=== PATIENT | male | born 1965 | race American Indian/Alaskan Native ===

== ENCOUNTER 2019-01-24 20:10 | Emergency (ER) | payer OTHER ==
[~2019-01-24] VITALS: Ht 180.3 cm; Wt 97.0 kg
[2019-01-24 20:15] VITALS: BP 147/81
[2019-01-24] MEDS ORDERED: morphine 4 MG/ML inj SYRINge IM ONE (20:30)
[2019-01-24] MEDS ORDERED: HYDR-3965 PO (20:31)
== END 2019-01-24 20:59 | disposition home or self-care (01) ==
LOC: ER 20:14
DX: G89.18 Other acute postprocedural pain (principal); I10 Essential (primary) hypertension; F12.90 Cannabis use, unspecified, uncomplicated; Z79.899 Other long term (current) drug therapy; Z87.891 Personal history of nicotine dependence
CPT/HCPCS: 96372; 99284; J2270

== ENCOUNTER 2019-01-31 10:04 | Emergency (ER) | payer OTHER ==
[~2019-01-31] VITALS: Ht 180.3 cm; Wt 104.0 kg
[~2019-01-31 10:04] MED LIST: HYDR-3965 PO
--- NOTE | 2019-01-31 12:16 | NUR ---
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 REQUESTED THAT SHE BE CALLED AND NOTIFIED SHOULD PT BE ADMITTED AT AND IF/ WHEN PT IS DC'd TO FAX THE PTS DC INSTRUSTIONS TO
[2019-01-31] MEDS ORDERED: HYDR-4353 PO (12:29)
[2019-01-31] MEDS ORDERED: HYDROcodone/acetaminophen 10/325mg tab PO ONE (12:30)
[2019-01-31 12:41] VITALS: BP 141/82
== END 2019-01-31 12:44 | disposition home or self-care (01) ==
LOC: ER 10:05
DX: S81.802D Unspecified open wound, left lower leg, subsequent encounter (principal); I10 Essential (primary) hypertension; F10.99 Alcohol use, unspecified with unspecified alcohol-induced disorder; F12.90 Cannabis use, unspecified, uncomplicated; Z98.890 Other specified postprocedural states; Z79.899 Other long term (current) drug therapy; X58.XXXD Exposure to other specified factors, subsequent encounter; Y90.9 Presence of alcohol in blood, level not specified
CPT/HCPCS: 99284

== ENCOUNTER 2019-02-07 08:58 | Day surgery (SDC) | payer OTHER ==
[~2019-02-07 08:58] MED LIST changes: +HYDR-4353 PO
[2019-02-07] MEDS ORDERED: LIDOcaine 2% 5ml jelly ONE (09:40)
== END 2019-02-07 11:31 | disposition home or self-care (01) ==
LOC: WOUND CARE 08:58 → EDSTATUS 09:30 → WOUND CARE 11:31
PROVIDERS: ATTEND Surgery
DX: T87.81 Dehiscence of amputation stump (principal); L97.223 Non-pressure chronic ulcer of left calf with necrosis of muscle; I10 Essential (primary) hypertension; F12.90 Cannabis use, unspecified, uncomplicated; Z87.891 Personal history of nicotine dependence; Z79.899 Other long term (current) drug therapy; Z98.890 Other specified postprocedural states; Y83.5 Amputation of limb(s) as the cause of abnormal reaction of the patient, or of later complication, without mention of misadventure at the time of the procedure
CPT/HCPCS: 11043; 11046; 97605; A6223; A4663; A6446

== ENCOUNTER 2019-02-09 09:29 | Day surgery (SDC) | payer OTHER | END 2019-02-09 11:30 | disposition home or self-care (01) | LOC: WOUND CARE 09:29 | PROVIDERS: ATTEND Surgery | DX: T87.81 Dehiscence of amputation stump (principal); L97.223 Non-pressure chronic ulcer of left calf with necrosis of muscle; I10 Essential (primary) hypertension; F12.90 Cannabis use, unspecified, uncomplicated; Z87.891 Personal history of nicotine dependence; Z79.899 Other long term (current) drug therapy; Z98.890 Other specified postprocedural states; Y83.5 Amputation of limb(s) as the cause of abnormal reaction of the patient, or of later complication, without mention of misadventure at the time of the procedure | CPT/HCPCS: 11043; 11046; A6222; A4663; A6446 ==

== ENCOUNTER 2019-02-13 09:08 | Day surgery (SDC) | payer OTHER ==
[2019-02-13] MEDS ORDERED: LIDOcaine 2% 5ml jelly ONE (09:47)
== END 2019-02-13 12:05 | disposition home or self-care (01) ==
LOC: WOUND CARE 09:08
PROVIDERS: ATTEND Surgery
DX: T87.81 Dehiscence of amputation stump (principal); L97.223 Non-pressure chronic ulcer of left calf with necrosis of muscle; I10 Essential (primary) hypertension; F12.90 Cannabis use, unspecified, uncomplicated; Z87.891 Personal history of nicotine dependence; Z79.899 Other long term (current) drug therapy; Z98.890 Other specified postprocedural states; Y83.5 Amputation of limb(s) as the cause of abnormal reaction of the patient, or of later complication, without mention of misadventure at the time of the procedure
CPT/HCPCS: 11042; 11045; 97605; A6222; A4456; A4663

== ENCOUNTER 2019-02-16 08:45 | Day surgery (SDC) | payer OTHER ==
[2019-02-16] MEDS ORDERED: LIDOcaine 2% 5ml jelly ONE (09:28)
== END 2019-02-16 11:43 | disposition home or self-care (01) ==
LOC: WOUND CARE 08:45
PROVIDERS: ATTEND Surgery
DX: T87.81 Dehiscence of amputation stump (principal); L97.223 Non-pressure chronic ulcer of left calf with necrosis of muscle; I10 Essential (primary) hypertension; F12.90 Cannabis use, unspecified, uncomplicated; Z87.891 Personal history of nicotine dependence; Z79.899 Other long term (current) drug therapy; Z98.890 Other specified postprocedural states; Y83.5 Amputation of limb(s) as the cause of abnormal reaction of the patient, or of later complication, without mention of misadventure at the time of the procedure
CPT/HCPCS: 11045; 97606; A4663

== ENCOUNTER 2019-02-20 09:25 | Day surgery (SDC) | payer OTHER ==
[2019-02-20] MEDS ORDERED: LIDOcaine 2% 5ml jelly ONE (09:41)
== END 2019-02-20 10:45 | disposition home or self-care (01) ==
LOC: WOUND CARE 09:25
PROVIDERS: ATTEND Surgery
DX: T87.81 Dehiscence of amputation stump (principal); L97.223 Non-pressure chronic ulcer of left calf with necrosis of muscle; I10 Essential (primary) hypertension; F12.90 Cannabis use, unspecified, uncomplicated; Z87.891 Personal history of nicotine dependence; Z79.899 Other long term (current) drug therapy; Z98.890 Other specified postprocedural states; Y83.5 Amputation of limb(s) as the cause of abnormal reaction of the patient, or of later complication, without mention of misadventure at the time of the procedure
CPT/HCPCS: 11042; 11045; 97605; A6222; A4456; A4663

== ENCOUNTER 2019-02-27 09:15 | Day surgery (SDC) | payer OTHER ==
[~2019-02-27 09:15] MED LIST changes: -HYDR-3965 PO
[2019-02-27] MEDS ORDERED: LIDOcaine 2% 5ml jelly ONE (10:13)
== END 2019-02-27 11:16 | disposition home or self-care (01) ==
LOC: WOUND CARE 09:15
PROVIDERS: ATTEND Surgery
DX: T87.81 Dehiscence of amputation stump (principal); L97.223 Non-pressure chronic ulcer of left calf with necrosis of muscle; I10 Essential (primary) hypertension; F12.90 Cannabis use, unspecified, uncomplicated; Z87.891 Personal history of nicotine dependence; Z79.899 Other long term (current) drug therapy; Z98.890 Other specified postprocedural states; Y83.5 Amputation of limb(s) as the cause of abnormal reaction of the patient, or of later complication, without mention of misadventure at the time of the procedure
CPT/HCPCS: 11042; 11043; 11045; 97605; A6222; A4663; A6021; A6446

== ENCOUNTER 2019-03-06 09:30 | Day surgery (SDC) | payer OTHER ==
[2019-03-06] MEDS ORDERED: LIDOcaine 2% 5ml jelly ONE (09:54)
== END 2019-03-06 12:15 | disposition home or self-care (01) ==
LOC: WOUND CARE 09:30
PROVIDERS: ATTEND Surgery
DX: T87.81 Dehiscence of amputation stump (principal); L97.223 Non-pressure chronic ulcer of left calf with necrosis of muscle; I10 Essential (primary) hypertension; F12.90 Cannabis use, unspecified, uncomplicated; Z87.891 Personal history of nicotine dependence; Z79.899 Other long term (current) drug therapy; Z98.890 Other specified postprocedural states; Y83.5 Amputation of limb(s) as the cause of abnormal reaction of the patient, or of later complication, without mention of misadventure at the time of the procedure
CPT/HCPCS: 11042; 11045; 97605; A6223; A4456; A4663; A6021; A6212

== ENCOUNTER 2019-03-07 21:50 | Emergency (ER) | payer OTHER ==
[~2019-03-07] VITALS: Ht 208.3 cm; Wt 104.0 kg
[2019-03-07 23:05] LABS: BASOPHILS # (AUTO) 0.1 X10'3 (0-0.2); BASOPHILS % (AUTO) 0.8 % (0-1); EOSINOPHILS # (AUTO) 0.4 X10'3 (0-0.9); EOSINOPHILS % (AUTO) 4.2 % (0-6); HEMATOCRIT 33.7 % (42.0-52.0); HEMOGLOBIN 10.8 g/dl (14.0-17.9); LYMPHOCYTES # (AUTO) 2.5 X10'3 (1.1-4.8); LYMPHOCYTES % (AUTO) 26.4 % (21-51); MEAN CORPUSCULAR HEMOGLOBIN 25.3 PG (27.0-31.0); MEAN CORPUSCULAR HGB CONC 32.2 g/dL (33.0-36.5); MEAN CORPUSCULAR VOLUME 78.5 FL (78-98); MEAN PLATELET VOLUME 7.6 FL (7.4-10.4); MONOCYTES # (AUTO) 1.2 X10'3 (0-0.9); MONOCYTES % (AUTO) 12.6 % (2-12); NEUTROPHILS # (AUTO) 5.3 X10'3 (1.8-7.7); PLATELET COUNT 393 X10'3 (140-440); RED BLOOD COUNT 4.29 X10'6 (4.70-6.10); RED CELL DISTRIBUTION WIDTH 15.9 % (11.5-14.5); WHITE BLOOD COUNT 9.5 X10'3 (4.5-11.0)
[2019-03-07 23:17] LABS: ALANINE AMINOTRANSFERASE 29 U/L (12-78); ALBUMIN 3.4 G/DL (3.4-5.0); ALBUMIN/GLOBULIN RATIO 0.9 (1.1-1.5); ALKALINE PHOSPHATASE 72 IU/L (46-116); ANION GAP 7 (8-16); ASPARTATE AMINO TRANSFERASE 16 U/L (10-37); BILIRUBIN,TOTAL 0.2 MG/DL (0.1-1.0); BLOOD UREA NITROGEN 20 MG/DL (7-18); BUN/CREATININE RATIO 22.2 (5.4-32.0); CALCIUM 8.9 MG/DL (8.5-10.1); CHLORIDE 107 MMOL/L (99-107); GLUCOSE 100 MG/DL (70-104); SODIUM 141 MMOL/L (135-145); TOTAL CARBON DIOXIDE 27.5 MMOL/L (24-32); eGFR 89 ML/MIN
[2019-03-07 23:34] VITALS: BP 152/103
== END 2019-03-07 23:37 | disposition home or self-care (01) ==
LOC: ER 21:51
DX: T87.89 Other complications of amputation stump (principal); L03.116 Cellulitis of left lower limb; I10 Essential (primary) hypertension; F12.90 Cannabis use, unspecified, uncomplicated; Z98.890 Other specified postprocedural states; Z89.512 Acquired absence of left leg below knee; Y83.8 Other surgical procedures as the cause of abnormal reaction of the patient, or of later complication, without mention of misadventure at the time of the procedure; Y92.89 Other specified places as the place of occurrence of the external cause
CPT/HCPCS: 36415; 80053; 85025; 97597; 99283; 99285

== ENCOUNTER 2019-03-08 10:50 | Outpatient (CLI) | payer OTHER ==
[2019-03-08] MEDS ORDERED: LIDOcaine 2% 5ml jelly ONE (12:07)
== END 2019-03-08 13:45 | disposition home or self-care (01) ==
LOC: WOUND CARE 10:50 → EDSTATUS 11:00 → WOUND CARE 13:45
PROVIDERS: ATTEND Surgery
DX: T87.81 Dehiscence of amputation stump (principal); L97.223 Non-pressure chronic ulcer of left calf with necrosis of muscle; I10 Essential (primary) hypertension; F12.90 Cannabis use, unspecified, uncomplicated; Z87.891 Personal history of nicotine dependence; Z79.899 Other long term (current) drug therapy; Z98.890 Other specified postprocedural states; Y83.5 Amputation of limb(s) as the cause of abnormal reaction of the patient, or of later complication, without mention of misadventure at the time of the procedure
CPT/HCPCS: 87070; 87075; 87077; 87102; 87186; 97606; A6209; A6222; A6266; 97605; A4663

== ENCOUNTER 2019-03-12 10:00 | Day surgery (SDC) | payer OTHER | END 2019-03-12 11:58 | disposition home or self-care (01) | LOC: WOUND CARE 10:00 | PROVIDERS: ATTEND Surgery | DX: T87.81 Dehiscence of amputation stump (principal); L97.223 Non-pressure chronic ulcer of left calf with necrosis of muscle; I10 Essential (primary) hypertension; F12.90 Cannabis use, unspecified, uncomplicated; Z87.891 Personal history of nicotine dependence; Z79.899 Other long term (current) drug therapy; Z98.890 Other specified postprocedural states; Y83.5 Amputation of limb(s) as the cause of abnormal reaction of the patient, or of later complication, without mention of misadventure at the time of the procedure | CPT/HCPCS: 11042; 97597; 97598; A6209; A6266; A4663; A6446 ==

== ENCOUNTER 2019-03-19 09:50 | Day surgery (SDC) | payer OTHER | END 2019-03-19 11:24 | disposition home or self-care (01) | LOC: WOUND CARE 09:50 | PROVIDERS: ATTEND Surgery | DX: T87.81 Dehiscence of amputation stump (principal); L97.223 Non-pressure chronic ulcer of left calf with necrosis of muscle; I10 Essential (primary) hypertension; F12.90 Cannabis use, unspecified, uncomplicated; Z87.891 Personal history of nicotine dependence; Z79.899 Other long term (current) drug therapy; Z98.890 Other specified postprocedural states; Y83.5 Amputation of limb(s) as the cause of abnormal reaction of the patient, or of later complication, without mention of misadventure at the time of the procedure | CPT/HCPCS: 11045; 97605; A4456; A4663; A6021; A6446 ==

== ENCOUNTER 2019-03-27 09:25 | Outpatient (CLI) | payer OTHER | END 2019-03-27 10:40 | disposition home or self-care (01) | LOC: WOUND CARE 09:25 → EDSTATUS 10:00 → WOUND CARE 10:40 | PROVIDERS: ATTEND Surgery | DX: T87.81 Dehiscence of amputation stump (principal); L97.223 Non-pressure chronic ulcer of left calf with necrosis of muscle; I10 Essential (primary) hypertension; F12.90 Cannabis use, unspecified, uncomplicated; Z87.891 Personal history of nicotine dependence; Z79.899 Other long term (current) drug therapy; Z98.890 Other specified postprocedural states; Y83.5 Amputation of limb(s) as the cause of abnormal reaction of the patient, or of later complication, without mention of misadventure at the time of the procedure | CPT/HCPCS: 97605; A6266; A4663 ==

== ENCOUNTER 2019-03-29 14:05 | Emergency (ER) | payer MEDICAID, OTHER ==
[~2019-03-29] VITALS: Ht 172.7 cm; Wt 116.0 kg
[2019-03-29] MEDS ORDERED: lisinopril 10 MG tablet PO ONE (15:35)
[2019-03-29] MEDS ORDERED: LISI-600 PO (15:39)
[2019-03-29 15:51] VITALS: BP 194/108
== END 2019-03-29 15:55 | disposition home or self-care (01) ==
LOC: ER 14:06
DX: I10 Essential (primary) hypertension (principal); F12.90 Cannabis use, unspecified, uncomplicated; Z98.890 Other specified postprocedural states; Z87.891 Personal history of nicotine dependence; Z79.899 Other long term (current) drug therapy
CPT/HCPCS: 93005; 99283

== ENCOUNTER 2019-04-01 07:45 | Emergency (ER) | payer OTHER ==
[~2019-04-01] VITALS: Ht 177.8 cm; Wt 113.6 kg
[~2019-04-01 07:45] MED LIST changes: -HYDR-4353 PO; +LISI-600 PO
[2019-04-01] MEDS ORDERED: diphenhydrAMINE 25mg capsule PO ONE (09:25)
[2019-04-01 09:52] VITALS: BP 184/116
== END 2019-04-01 09:53 | disposition home or self-care (01) ==
LOC: ER 07:45
DX: L50.9 Urticaria, unspecified (principal); I10 Essential (primary) hypertension; R11.0 Nausea; F12.90 Cannabis use, unspecified, uncomplicated; Z79.899 Other long term (current) drug therapy; Z98.890 Other specified postprocedural states
CPT/HCPCS: 99283; Q0163

== ENCOUNTER 2019-04-03 09:32 | Day surgery (SDC) | payer OTHER ==
[2019-04-03] MEDS ORDERED: LIDOcaine 2% 5ml jelly ONE ×2 (09:44→10:49)
== END 2019-04-03 11:45 | disposition home or self-care (01) ==
LOC: WOUND CARE 09:32
PROVIDERS: ATTEND Surgery
DX: T87.81 Dehiscence of amputation stump (principal); L97.223 Non-pressure chronic ulcer of left calf with necrosis of muscle; I10 Essential (primary) hypertension; F12.90 Cannabis use, unspecified, uncomplicated; Z87.891 Personal history of nicotine dependence; Z79.899 Other long term (current) drug therapy; Z98.890 Other specified postprocedural states; Y83.5 Amputation of limb(s) as the cause of abnormal reaction of the patient, or of later complication, without mention of misadventure at the time of the procedure
CPT/HCPCS: 11042; 11045; 97605; A6266; A4663; A6446

== ENCOUNTER 2019-04-10 09:35 | Day surgery (SDC) | payer OTHER ==
[2019-04-10] MEDS ORDERED: LIDOcaine 2% 5ml jelly ONE (10:13)
== END 2019-04-10 12:55 | disposition home or self-care (01) ==
LOC: WOUND CARE 09:35
PROVIDERS: ATTEND Surgery
DX: T87.81 Dehiscence of amputation stump (principal); L97.223 Non-pressure chronic ulcer of left calf with necrosis of muscle; I10 Essential (primary) hypertension; F12.90 Cannabis use, unspecified, uncomplicated; Z87.891 Personal history of nicotine dependence; Z79.899 Other long term (current) drug therapy; Z98.890 Other specified postprocedural states; Y83.5 Amputation of limb(s) as the cause of abnormal reaction of the patient, or of later complication, without mention of misadventure at the time of the procedure
CPT/HCPCS: 11042; 97605; A6266; A4456; A4663

== ENCOUNTER 2019-04-17 09:20 | Day surgery (SDC) | payer OTHER ==
[2019-04-17] MEDS ORDERED: LIDOcaine 2% 5ml jelly ONE ×2 (09:40)
== END 2019-04-17 10:58 | disposition home or self-care (01) ==
LOC: WOUND CARE 09:20
PROVIDERS: ATTEND Surgery
DX: T87.81 Dehiscence of amputation stump (principal); L97.223 Non-pressure chronic ulcer of left calf with necrosis of muscle; L97.823 Non-pressure chronic ulcer of other part of left lower leg with necrosis of muscle; I10 Essential (primary) hypertension; F12.90 Cannabis use, unspecified, uncomplicated; Z87.891 Personal history of nicotine dependence; Z79.899 Other long term (current) drug therapy; Z98.890 Other specified postprocedural states; Y83.5 Amputation of limb(s) as the cause of abnormal reaction of the patient, or of later complication, without mention of misadventure at the time of the procedure
CPT/HCPCS: 11042; 73560; 87070; 87075; 87102; 97605; A6266; 87076; 87077; 87185; 87186; A4663; A6250

== ENCOUNTER 2019-04-23 10:20 | Day surgery (SDC) | payer OTHER | END 2019-04-23 13:57 | disposition home or self-care (01) | LOC: WOUND CARE 10:20 | PROVIDERS: ATTEND Surgery | DX: T87.81 Dehiscence of amputation stump (principal); L97.223 Non-pressure chronic ulcer of left calf with necrosis of muscle; L97.823 Non-pressure chronic ulcer of other part of left lower leg with necrosis of muscle; I10 Essential (primary) hypertension; F12.90 Cannabis use, unspecified, uncomplicated; Z87.891 Personal history of nicotine dependence; Z79.899 Other long term (current) drug therapy; Z98.890 Other specified postprocedural states; Y83.5 Amputation of limb(s) as the cause of abnormal reaction of the patient, or of later complication, without mention of misadventure at the time of the procedure | CPT/HCPCS: 11042; 97605; A6266; A4663 ==

== ENCOUNTER 2019-05-01 09:28 | Day surgery (SDC) | payer OTHER ==
[2019-05-01] MEDS ORDERED: LIDOcaine 2% 5ml jelly ONE (09:34)
== END 2019-05-01 10:50 | disposition home or self-care (01) ==
LOC: WOUND CARE 09:28
PROVIDERS: ATTEND Surgery
DX: T87.81 Dehiscence of amputation stump (principal); L97.223 Non-pressure chronic ulcer of left calf with necrosis of muscle; L97.823 Non-pressure chronic ulcer of other part of left lower leg with necrosis of muscle; I10 Essential (primary) hypertension; F12.90 Cannabis use, unspecified, uncomplicated; Z87.891 Personal history of nicotine dependence; Z79.899 Other long term (current) drug therapy; Z98.890 Other specified postprocedural states; Y83.5 Amputation of limb(s) as the cause of abnormal reaction of the patient, or of later complication, without mention of misadventure at the time of the procedure
CPT/HCPCS: 97605; A4456; A4663

== ENCOUNTER 2019-05-08 09:15 | Day surgery (SDC) | payer OTHER ==
[2019-05-08] MEDS ORDERED: LIDOcaine 2% 5ml jelly ONE (09:33)
== END 2019-05-08 10:35 | disposition home or self-care (01) ==
LOC: WOUND CARE 09:15
PROVIDERS: ATTEND Surgery
DX: T87.81 Dehiscence of amputation stump (principal); L97.223 Non-pressure chronic ulcer of left calf with necrosis of muscle; L97.823 Non-pressure chronic ulcer of other part of left lower leg with necrosis of muscle; I10 Essential (primary) hypertension; F12.90 Cannabis use, unspecified, uncomplicated; Z87.891 Personal history of nicotine dependence; Z79.899 Other long term (current) drug therapy; Z98.890 Other specified postprocedural states; Y83.5 Amputation of limb(s) as the cause of abnormal reaction of the patient, or of later complication, without mention of misadventure at the time of the procedure
CPT/HCPCS: 11042; 15271; Q4133; A4663; A6446

== ENCOUNTER 2019-05-15 09:35 | Day surgery (SDC) | payer OTHER ==
[2019-05-15] MEDS ORDERED: LIDOcaine 2% 5ml jelly ONE (10:13)
== END 2019-05-15 11:02 | disposition home or self-care (01) ==
LOC: WOUND CARE 09:35
PROVIDERS: ATTEND Surgery
DX: T87.81 Dehiscence of amputation stump (principal); L97.223 Non-pressure chronic ulcer of left calf with necrosis of muscle; L97.823 Non-pressure chronic ulcer of other part of left lower leg with necrosis of muscle; I10 Essential (primary) hypertension; F12.90 Cannabis use, unspecified, uncomplicated; Z87.891 Personal history of nicotine dependence; Z79.899 Other long term (current) drug therapy; Z98.890 Other specified postprocedural states; Y83.5 Amputation of limb(s) as the cause of abnormal reaction of the patient, or of later complication, without mention of misadventure at the time of the procedure
CPT/HCPCS: 11042; A6209; A4663; A6021; A6154; A6446

== ENCOUNTER 2019-05-22 09:20 | Day surgery (SDC) | payer OTHER ==
[2019-05-22] MEDS ORDERED: LIDOcaine 2% 5ml jelly ONE (09:50)
== END 2019-05-22 11:39 | disposition home or self-care (01) ==
LOC: WOUND CARE 09:20
PROVIDERS: ATTEND Surgery
DX: T87.81 Dehiscence of amputation stump (principal); L97.223 Non-pressure chronic ulcer of left calf with necrosis of muscle; L97.823 Non-pressure chronic ulcer of other part of left lower leg with necrosis of muscle; I10 Essential (primary) hypertension; F12.90 Cannabis use, unspecified, uncomplicated; Z87.891 Personal history of nicotine dependence; Z79.899 Other long term (current) drug therapy; Z98.890 Other specified postprocedural states; Y83.5 Amputation of limb(s) as the cause of abnormal reaction of the patient, or of later complication, without mention of misadventure at the time of the procedure
CPT/HCPCS: 11042; 15271; A6209; A6222; Q4133; A4663; A6250; A6446

== ENCOUNTER 2019-05-29 09:25 | Day surgery (SDC) | payer OTHER ==
[2019-05-29] MEDS ORDERED: LIDOcaine 2% 5ml jelly ONE (09:29)
== END 2019-05-29 10:05 | disposition home or self-care (01) ==
LOC: WOUND CARE 09:25
PROVIDERS: ATTEND Surgery
DX: T87.81 Dehiscence of amputation stump (principal); L97.223 Non-pressure chronic ulcer of left calf with necrosis of muscle; L97.823 Non-pressure chronic ulcer of other part of left lower leg with necrosis of muscle; I10 Essential (primary) hypertension; F12.90 Cannabis use, unspecified, uncomplicated; Z87.891 Personal history of nicotine dependence; Z79.899 Other long term (current) drug therapy; Z98.890 Other specified postprocedural states; Y83.5 Amputation of limb(s) as the cause of abnormal reaction of the patient, or of later complication, without mention of misadventure at the time of the procedure
CPT/HCPCS: 11042; 97597; A6209; A6021; A6154; A6446

== ENCOUNTER 2019-06-06 09:33 | Day surgery (SDC) | payer OTHER | END 2019-06-06 10:29 | disposition home or self-care (01) | LOC: WOUND CARE 09:33 | PROVIDERS: ATTEND Surgery | DX: T87.81 Dehiscence of amputation stump (principal); L97.223 Non-pressure chronic ulcer of left calf with necrosis of muscle; L97.823 Non-pressure chronic ulcer of other part of left lower leg with necrosis of muscle; I10 Essential (primary) hypertension; F12.90 Cannabis use, unspecified, uncomplicated; Z87.891 Personal history of nicotine dependence; Z79.899 Other long term (current) drug therapy; Z98.890 Other specified postprocedural states; Y83.5 Amputation of limb(s) as the cause of abnormal reaction of the patient, or of later complication, without mention of misadventure at the time of the procedure | CPT/HCPCS: 97597; A4663; A6021; A6154; A6446 ==

== ENCOUNTER 2019-06-12 08:45 | Day surgery (SDC) | payer OTHER ==
[2019-06-12] MEDS ORDERED: LIDOcaine/PRILOcaine 5gm cream TP ONE (09:19)
== END 2019-06-12 10:27 | disposition home or self-care (01) ==
LOC: WOUND CARE 08:45
PROVIDERS: ATTEND Surgery
DX: T87.81 Dehiscence of amputation stump (principal); L97.223 Non-pressure chronic ulcer of left calf with necrosis of muscle; I10 Essential (primary) hypertension; F12.90 Cannabis use, unspecified, uncomplicated; Z87.891 Personal history of nicotine dependence; Z79.899 Other long term (current) drug therapy; Z98.890 Other specified postprocedural states; Y83.5 Amputation of limb(s) as the cause of abnormal reaction of the patient, or of later complication, without mention of misadventure at the time of the procedure
CPT/HCPCS: 97597; A6209; A4663; A6154; A6446

== ENCOUNTER 2019-06-19 08:50 | Day surgery (SDC) | payer OTHER | END 2019-06-19 09:44 | disposition home or self-care (01) | LOC: WOUND CARE 08:50 | PROVIDERS: ATTEND Nurse Practitioner Family | DX: T87.81 Dehiscence of amputation stump (principal); L97.823 Non-pressure chronic ulcer of other part of left lower leg with necrosis of muscle; I10 Essential (primary) hypertension; F12.90 Cannabis use, unspecified, uncomplicated; Z87.891 Personal history of nicotine dependence; Z79.899 Other long term (current) drug therapy; Z98.890 Other specified postprocedural states; Y83.5 Amputation of limb(s) as the cause of abnormal reaction of the patient, or of later complication, without mention of misadventure at the time of the procedure | CPT/HCPCS: 97597; A4663; A6021 ==

== ENCOUNTER 2019-07-03 09:16 | Day surgery (SDC) | payer OTHER | END 2019-07-03 10:27 | disposition home or self-care (01) | LOC: WOUND CARE 09:16 | PROVIDERS: ATTEND Surgery | DX: T87.81 Dehiscence of amputation stump (principal); L97.823 Non-pressure chronic ulcer of other part of left lower leg with necrosis of muscle; I10 Essential (primary) hypertension; F12.90 Cannabis use, unspecified, uncomplicated; Z87.891 Personal history of nicotine dependence; Z79.899 Other long term (current) drug therapy; Z98.890 Other specified postprocedural states; Y83.5 Amputation of limb(s) as the cause of abnormal reaction of the patient, or of later complication, without mention of misadventure at the time of the procedure | CPT/HCPCS: 97597; A4663; A6021; A6154; A6213 ==

== ENCOUNTER 2019-07-17 09:20 | Day surgery (SDC) | payer OTHER | END 2019-07-17 09:52 | disposition home or self-care (01) | LOC: WOUND CARE 09:20 | PROVIDERS: ATTEND Nurse Practitioner Family | DX: T87.81 Dehiscence of amputation stump (principal); L97.823 Non-pressure chronic ulcer of other part of left lower leg with necrosis of muscle; I10 Essential (primary) hypertension; F12.90 Cannabis use, unspecified, uncomplicated; Z87.891 Personal history of nicotine dependence; Z79.899 Other long term (current) drug therapy; Z98.890 Other specified postprocedural states; Y83.5 Amputation of limb(s) as the cause of abnormal reaction of the patient, or of later complication, without mention of misadventure at the time of the procedure | CPT/HCPCS: 97597; A4663; A6021; A6154; A6212 ==

== ENCOUNTER 2019-07-31 09:25 | Day surgery (SDC) | payer OTHER | END 2019-07-31 11:00 | disposition home or self-care (01) | LOC: WOUND CARE 09:25 | PROVIDERS: ATTEND Nurse Practitioner Family | DX: T87.81 Dehiscence of amputation stump (principal); L97.823 Non-pressure chronic ulcer of other part of left lower leg with necrosis of muscle; I10 Essential (primary) hypertension; F12.90 Cannabis use, unspecified, uncomplicated; Z87.891 Personal history of nicotine dependence; Z79.899 Other long term (current) drug therapy; Z98.890 Other specified postprocedural states; Y83.5 Amputation of limb(s) as the cause of abnormal reaction of the patient, or of later complication, without mention of misadventure at the time of the procedure | CPT/HCPCS: 97597 ==

== ENCOUNTER 2019-08-07 09:28 | Day surgery (SDC) | payer OTHER | END 2019-08-07 09:51 | disposition home or self-care (01) | LOC: WOUND CARE 09:28 | PROVIDERS: ATTEND Surgery | DX: T87.81 Dehiscence of amputation stump (principal); L97.823 Non-pressure chronic ulcer of other part of left lower leg with necrosis of muscle; I10 Essential (primary) hypertension; F12.90 Cannabis use, unspecified, uncomplicated; Z87.891 Personal history of nicotine dependence; Z79.899 Other long term (current) drug therapy; Z98.890 Other specified postprocedural states; Y83.5 Amputation of limb(s) as the cause of abnormal reaction of the patient, or of later complication, without mention of misadventure at the time of the procedure ==

== ENCOUNTER 2019-08-14 09:35 | Day surgery (SDC) | payer OTHER ==
[2019-08-14] MEDS ORDERED: LIDOcaine 2% 5ml jelly ONE (09:51)
== END 2019-08-14 10:30 | disposition home or self-care (01) ==
LOC: WOUND CARE 09:35
PROVIDERS: ATTEND Nurse Practitioner Family
DX: T87.81 Dehiscence of amputation stump (principal); L97.823 Non-pressure chronic ulcer of other part of left lower leg with necrosis of muscle; I10 Essential (primary) hypertension; F12.90 Cannabis use, unspecified, uncomplicated; Z87.891 Personal history of nicotine dependence; Z79.899 Other long term (current) drug therapy; Z98.890 Other specified postprocedural states; Y83.5 Amputation of limb(s) as the cause of abnormal reaction of the patient, or of later complication, without mention of misadventure at the time of the procedure

== ENCOUNTER 2019-08-28 09:35 | Outpatient (CLI) | payer OTHER ==
[2019-08-28] MEDS ORDERED: LIDOcaine 2% 5ml jelly ONE (10:10)
== END 2019-08-28 10:18 | disposition home or self-care (01) ==
LOC: WOUND CARE 09:35
PROVIDERS: ATTEND Surgery
DX: T87.81 Dehiscence of amputation stump (principal); L97.823 Non-pressure chronic ulcer of other part of left lower leg with necrosis of muscle; I10 Essential (primary) hypertension; F12.90 Cannabis use, unspecified, uncomplicated; Z87.891 Personal history of nicotine dependence; Z79.899 Other long term (current) drug therapy; Z98.890 Other specified postprocedural states; Y83.5 Amputation of limb(s) as the cause of abnormal reaction of the patient, or of later complication, without mention of misadventure at the time of the procedure
CPT/HCPCS: G0463

== ENCOUNTER 2020-02-10 03:19 | Inpatient (IN) | payer MEDICAID, OTHER ==
[~2020-02-10] VITALS: Ht 177.8 cm; Wt 129.6 kg
[2020-02-10] MEDS ORDERED: aspirin 81mg tab.chew PO ONE (03:30)
[2020-02-10] MEDS: nitroGLYCERIN 0.4mg SUBLingual tab SL PRN ×3 (03:36→04:02)
[2020-02-10] MEDS ORDERED: HYDR25TA4 PO (03:45)
[2020-02-10] MEDS ORDERED: AMLO10TA13 PO (03:45)
[2020-02-10] MEDS ORDERED: METO100T14 PO (03:46)
[2020-02-10 03:47] LABS: BASOPHILS # (AUTO) 0.1 X10'3 (0-0.2); BASOPHILS % (AUTO) 0.8 % (0-1); EOSINOPHILS # (AUTO) 0.3 X10'3 (0-0.9); EOSINOPHILS % (AUTO) 2.4 % (0-6); HEMATOCRIT 46.8 % (42.0-52.0); HEMOGLOBIN 15.7 g/dl (14.0-17.9); LYMPHOCYTES # (AUTO) 2.3 X10'3 (1.1-4.8); LYMPHOCYTES % (AUTO) 18.3 % (21-51); MEAN CORPUSCULAR HEMOGLOBIN 29.3 PG (27.0-31.0); MEAN CORPUSCULAR HGB CONC 33.5 g/dL (33.0-36.5); MEAN CORPUSCULAR VOLUME 87.4 FL (78-98); MEAN PLATELET VOLUME 8.4 FL (7.4-10.4); MONOCYTES # (AUTO) 1.1 X10'3 (0-0.9); MONOCYTES % (AUTO) 8.3 % (2-12); NEUTROPHILS % (AUTO) 70.2 % (42-75); PLATELET COUNT 321 X10'3 (140-440); RED BLOOD COUNT 5.35 X10'6 (4.70-6.10); RED CELL DISTRIBUTION WIDTH 12.6 % (11.5-14.5); WHITE BLOOD COUNT 12.8 X10'3 (4.5-11.0)
[2020-02-10 04:07] LABS: ALANINE AMINOTRANSFERASE 33 U/L (12-78); ALBUMIN/GLOBULIN RATIO 0.9 (1.1-1.5); ALKALINE PHOSPHATASE 69 IU/L (46-116); ANION GAP 10 (8-16); ASPARTATE AMINO TRANSFERASE 14 U/L (10-37); BILIRUBIN,TOTAL 0.4 MG/DL (0.1-1.0); BLOOD UREA NITROGEN 21 MG/DL (7-18); BUN/CREATININE RATIO 16.8 (5.4-32.0); CALCIUM 9.3 MG/DL (8.5-10.1); CHLORIDE 101 MMOL/L (99-107); CREATININE 1.25 MG/DL (0.60-1.10); GLUCOSE 126 MG/DL (70-104); POTASSIUM 3.3 MMOL/L (3.5-5.1); SODIUM 139 MMOL/L (135-145); TOTAL CARBON DIOXIDE 28.3 MMOL/L (24-32); TOTAL PROTEIN 8.4 G/DL (6.4-8.2); eGFR 61 ML/MIN
[2020-02-10] MEDS ORDERED: magnesium 4gm in 100ml NS 100 ML IV PRN (04:40)
[2020-02-10] MEDS ORDERED: magnesium Cl slow-release 64mg tablet PO PRN (04:40)
[2020-02-10] MEDS ORDERED: HYDROcodone/acetaminophen 5mg/325mg tablet PO PRN (04:40)
[2020-02-10] MEDS ORDERED: ondansetron/PF 4mg/2ml inj IV PRN (04:40)
[2020-02-10] MEDS ORDERED: HYDROcodone/acetaminophen 10/325mg tab PO PRN (04:40)
[2020-02-10] MEDS ORDERED: magnesium 2GM in 50ml NS 50 ML IV PRN (04:40)
[2020-02-10] MEDS ORDERED: potassium Cl 20 mEq SR tablet PO PRN ×2 (04:40)
[2020-02-10] MEDS ORDERED: mag hydrox/Alum hydrox/simeth 30ml oral suspension PO PRN (04:40)
[2020-02-10] MEDS ORDERED: potassium CL 10mEq/100ml bag 100 ML IV PRN ×2 (04:40)
[2020-02-10] MEDS ORDERED: magnesium hydroxide 30ml (MOM) UD suspension PO PRN (04:40)
[2020-02-10] MEDS ORDERED: acetaminophen 325mg tablet PO PRN ×2 (04:40)
[2020-02-10] MEDS: normal saline 1000ml 1,000 ML IV SCH ×3 (04:58→23:15)
[2020-02-10 05:07] LABS: LIPASE 132 U/L (73-393)
[2020-02-10] MEDS ORDERED: iohexol 350MG/ML 100ml bottle IV ONE (05:16)
[2020-02-10 07:10] VITALS: BP 149/71
[2020-02-10] MEDS: K and/or MAG REPLACEMENT MC SCH ×2 (08:00→20:00)
[2020-02-10 10:00] VITALS: BP 166/106
--- NOTE | 2020-02-10 10:00 | NUR ---
DR COLINDRES AT BEDSIDE AND NOTIFIED OF ELEVATED BP
--- NOTE | 2020-02-10 11:04 | NUR ---
Page Sent PAGER ID: [phone] MESSAGE: JAYJAY [phone]: BELKYS BURRELL [id number], PT HAD A FEW BITES OF SANDWICH AND MADE HIM NAUSEOUS SO HE STOPPED EATING.
--- NOTE | 2020-02-10 14:07 | NUR ---
Page Sent PAGER ID: [phone] MESSAGE: JAYJAY [phone]: BELKYS BURRELL [id number]...PT REPORTS SOME PAIN AND NAUSEA BUT NOT BAD LAST NIGHT
[2020-02-10] MEDS ORDERED: NORMAL SALINE IV ONE (15:05)
[2020-02-10] MEDS ORDERED: SINCALIDE IV ONE (15:05)
[2020-02-10] MEDS: heparin, porcine 5000 units/ml vial SQ SCH ×5 (16:00→23:14)
[2020-02-10] MEDS: HYDROchlorothiazide 25mg tablet PO SCH (16:11)
[2020-02-10] MEDS: famotidine 10mg tablet PO SCH ×2 (16:11→20:00)
[2020-02-10] MEDS: amLODIPine 5mg tablet PO SCH (16:11)
[2020-02-10] MEDS: metoprolol tartrate 50mg tablet PO SCH ×2 (16:11→23:13)
[2020-02-10 18:00] VITALS: BP 168/97
--- NOTE | 2020-02-10 18:28 | NUR ---
Report to September RN
[2020-02-10 22:00] VITALS: BP 140/74
[2020-02-10 23:10] VITALS: BP 133/74
[2020-02-11 06:00] VITALS: BP 150/95
[2020-02-11 07:31] LABS: BASOPHILS # (AUTO) 0.1 X10'3 (0-0.2); BASOPHILS % (AUTO) 1.1 % (0-1); EOSINOPHILS # (AUTO) 0.3 X10'3 (0-0.9); EOSINOPHILS % (AUTO) 4.1 % (0-6); HEMATOCRIT 41.7 % (42.0-52.0); HEMOGLOBIN 14.3 g/dl (14.0-17.9); LYMPHOCYTES # (AUTO) 2.7 X10'3 (1.1-4.8); LYMPHOCYTES % (AUTO) 40.3 % (21-51); MEAN CORPUSCULAR HGB CONC 34.3 g/dL (33.0-36.5); MEAN CORPUSCULAR VOLUME 87.5 FL (78-98); MEAN PLATELET VOLUME 8.3 FL (7.4-10.4); MONOCYTES # (AUTO) 0.6 X10'3 (0-0.9); MONOCYTES % (AUTO) 9.6 % (2-12); NEUTROPHILS % (AUTO) 44.9 % (42-75); PLATELET COUNT 286 X10'3 (140-440); RED BLOOD COUNT 4.77 X10'6 (4.70-6.10); RED CELL DISTRIBUTION WIDTH 12.5 % (11.5-14.5); WHITE BLOOD COUNT 6.6 X10'3 (4.5-11.0)
[2020-02-11] MEDS: K and/or MAG REPLACEMENT MC SCH (08:00)
[2020-02-11] MEDS: heparin, porcine 5000 units/ml vial SQ SCH ×5 (08:00→16:00)
[2020-02-11 08:17] LABS: ALANINE AMINOTRANSFERASE 29 U/L (12-78); ALBUMIN 3.3 G/DL (3.4-5.0); ALBUMIN/GLOBULIN RATIO 0.9 (1.1-1.5); ALKALINE PHOSPHATASE 61 IU/L (46-116); ANION GAP 11 (8-16); ASPARTATE AMINO TRANSFERASE 23 U/L (10-37); BILIRUBIN,TOTAL 0.7 MG/DL (0.1-1.0); BLOOD UREA NITROGEN 16 MG/DL (7-18); CALCIUM 8.9 MG/DL (8.5-10.1); CHLORIDE 102 MMOL/L (99-107); CHOLESTEROL 159 MG/DL (0-200); GLUCOSE 101 MG/DL (70-104); MAGNESIUM 1.9 MG/DL (1.5-2.4); SODIUM 139 MMOL/L (135-145); TOTAL CARBON DIOXIDE 26.4 MMOL/L (24-32); eGFR 78 ML/MIN
[2020-02-11 08:18] LABS: CHOL/HDL RATIO 4.8 (0.00-4.99); HDL CHOLESTEROL 33 MG/DL (35-60); LDL CHOLESTEROL 92 MG/DL (50-100); TRIGLYCERIDES 266 MG/DL (20-135)
[2020-02-11 08:22] LABS: POTASSIUM 3.2 MMOL/L (3.5-5.1)
[2020-02-11] MEDS: famotidine 10mg tablet PO SCH (08:56)
[2020-02-11] MEDS: metoprolol tartrate 50mg tablet PO SCH ×2 (08:57→13:00)
[2020-02-11] MEDS: HYDROchlorothiazide 25mg tablet PO SCH (08:58)
[2020-02-11] MEDS: amLODIPine 5mg tablet PO SCH (08:58)
[2020-02-11 09:59] VITALS: BP 155/87
[2020-02-11] MEDS: normal saline 1000ml 1,000 ML IV SCH (10:37)
[2020-02-11] MEDS ORDERED: morphine 4 MG/ML inj SYRINge IV ONE (15:05)
--- NOTE | 2020-02-11 17:15 | NUR ---
Dr Murguia called, ok to feed patient regular diet. Notify him if patient has abd pain & nausea.
[2020-02-11] MEDS ORDERED: ONDA4TAB6 PO (17:59)
== END 2020-02-11 19:50 | disposition home or self-care (01) ==
LOC: ER 03:19 → ED HOLD 04:37 → ORTHO 4S 07:25
PROVIDERS: ADMIT Family Medicine; ATTEND Internal Medicine
PROC: B32T1ZZ Computerized Tomography (CT Scan) of Left Pulmonary Artery using Low Osmolar Contrast (ICD-10-PCS; principal; 2020-02-10)
PROC: B3201ZZ Computerized Tomography (CT Scan) of Thoracic Aorta using Low Osmolar Contrast (ICD-10-PCS; 2020-02-10)
PROC: B32S1ZZ Computerized Tomography (CT Scan) of Right Pulmonary Artery using Low Osmolar Contrast (ICD-10-PCS; 2020-02-10)
PROC: CF1C1ZZ Planar Nuclear Medicine Imaging of Hepatobiliary System, All using Technetium 99m (Tc-99m) (ICD-10-PCS; 2020-02-11)
DX: K80.20 Calculus of gallbladder without cholecystitis without obstruction (principal); I10 Essential (primary) hypertension; N28.9 Disorder of kidney and ureter, unspecified; E87.6 Hypokalemia; Z89.512 Acquired absence of left leg below knee; Z96.611 Presence of right artificial shoulder joint; F12.90 Cannabis use, unspecified, uncomplicated; Z79.899 Other long term (current) drug therapy; Z82.49 Family history of ischemic heart disease and other diseases of the circulatory system; Z87.891 Personal history of nicotine dependence; E66.01 Morbid (severe) obesity due to excess calories; Z68.41 Body mass index [BMI] 40.0-44.9, adult
CPT/HCPCS: 36415; 71045; 71275; 76700; 78227; 80053; 80061; 83690; 83735; 83880; 84484; 85025; 93005; 93306; 97116; 97161; 97530; 99285; A9537; G0378; J1644; J2805; J7030; Q9967

== ENCOUNTER 2021-08-17 15:26 | Emergency (ER) | payer MEDICAID, OTHER ==
[~2021-08-17] VITALS: Ht 175.3 cm; Wt 125.0 kg
[~2021-08-17 15:26] MED LIST changes: +HYDR25TA4 PO; -LISI-600 PO; +LISI10TA27 PO; +METO100T14 PO
[2021-08-17 15:54] VITALS: BP 164/106
== END 2021-08-18 03:47 | disposition left against medical advice (07) ==
LOC: ER 15:27
DX: R58 Hemorrhage, not elsewhere classified (principal); Z53.21 Procedure and treatment not carried out due to patient leaving prior to being seen by health care provider

== ENCOUNTER 2021-08-20 10:10 | Inpatient (IN) | payer MEDICAID, OTHER ==
[~2021-08-20] VITALS: Ht 175.3 cm; Wt 122.7 kg
[2021-08-20 11:11] LABS: BASOPHILS # (AUTO) 0.1 X10'3 (0-0.2); BASOPHILS % (AUTO) 1.1 % (0-1); EOSINOPHILS # (AUTO) 0.4 X10'3 (0-0.9); EOSINOPHILS % (AUTO) 3.3 % (0-6); HEMATOCRIT 42.9 % (42.0-52.0); HEMOGLOBIN 14.7 g/dl (14.0-17.9); LYMPHOCYTES # (AUTO) 2.4 X10'3 (1.1-4.8); LYMPHOCYTES % (AUTO) 20.5 % (21-51); MEAN CORPUSCULAR HEMOGLOBIN 30.1 PG (27.0-31.0); MEAN CORPUSCULAR HGB CONC 34.2 g/dL (33.0-36.5); MEAN CORPUSCULAR VOLUME 88.1 FL (78-98); MONOCYTES # (AUTO) 0.8 X10'3 (0-0.9); NEUTROPHILS # (AUTO) 7.9 X10'3 (1.8-7.7); NEUTROPHILS % (AUTO) 68.1 % (42-75); PLATELET COUNT 439 X10'3 (140-440); RED BLOOD COUNT 4.87 X10'6 (4.70-6.10); RED CELL DISTRIBUTION WIDTH 12.4 % (11.5-14.5); WHITE BLOOD COUNT 11.5 X10'3 (4.5-11.0)
[2021-08-20] MEDS ORDERED: HYDROcodone/acetaminophen 10/325mg tab PO ONE (11:30)
[2021-08-20 11:40] LABS: ALANINE AMINOTRANSFERASE 30 U/L (12-78); ALBUMIN 4.1 G/DL (3.4-5.0); ALBUMIN/GLOBULIN RATIO 0.9 (1.1-1.5); ALKALINE PHOSPHATASE 63 IU/L (46-116); ANION GAP 15 (8-16); ASPARTATE AMINO TRANSFERASE 26 U/L (10-37); BILIRUBIN,TOTAL 0.5 MG/DL (0.1-1.0); BLOOD UREA NITROGEN 19 MG/DL (7-18); BUN/CREATININE RATIO 15.3 (5.4-32.0); CALCIUM 9.6 MG/DL (8.5-10.1); CHLORIDE 101 MMOL/L (99-107); CREATININE 1.24 MG/DL (0.60-1.10); GLUCOSE 119 MG/DL (70-104); POTASSIUM 4.1 MMOL/L (3.5-5.1); SODIUM 138 MMOL/L (135-145); TOTAL CARBON DIOXIDE 22.2 MMOL/L (24-32); TOTAL PROTEIN 8.5 G/DL (6.4-8.2); eGFR 61 ML/MIN
[2021-08-20] MEDS ORDERED: morphine 4 MG/ML inj SYRINge IM ONE (12:20)
[2021-08-20] MEDS ORDERED: ondansetron/PF 4mg/2ml inj IV PRN (14:35)
[2021-08-20] MEDS ORDERED: morphine 2 MG/ML inj. syringe IV PRN (14:35)
[2021-08-20] MEDS ORDERED: HYDROcodone/acetaminophen 10/325mg tab PO PRN (14:35)
[2021-08-20] MEDS ORDERED: HYDROcodone/acetaminophen 5mg/325mg tablet PO PRN (14:35)
[2021-08-20] MEDS ORDERED: acetaminophen 325mg tablet PO PRN ×2 (14:35)
[2021-08-20] MEDS ORDERED: mag hydrox/Alum hydrox/simeth 30ml oral suspension PO PRN (14:35)
[2021-08-20] MEDS ORDERED: magnesium hydroxide 30ml (MOM) UD suspension PO PRN (14:35)
[2021-08-20] MEDS: morphine 2 MG/ML inj. syringe IV PRN (14:46)
--- NOTE | 2021-08-20 14:58 | NUR ---
Rec'd a call from pt's workers comp adjustor, Gela informing me that pt has a open comp claim # [id number]. Gela's fax number is for clinical reviews. When time comes for pt to dc Gela can help getting home vac or H/H auth'd quickly. She is aware that we may not be able to get home health due to pt living in [place] but she will also approve any out-pt wound clinic appts. Will continue to monitor.
[2021-08-20] MEDS ORDERED: HYDR25TA5 PO (15:18)
[2021-08-20] MEDS ORDERED: lisinopril 10 MG tablet PO ONE (17:17)
[2021-08-20] MEDS ORDERED: HYDROmorphone/PF 0.2 MG/ML SYRINGE IV STA (17:20)
[2021-08-20] MEDS ORDERED: oxyCODONE IR 5mg (immed. release) tablet PO ONE (17:20)
[2021-08-20] MEDS ORDERED: HYDROmorphone inj. 0.5 MG/0.5 ML DISP.SYRIN IV ONE (17:20)
[2021-08-20 18:00] VITALS: BP 145/90
[2021-08-20 18:08] VITALS: BP 154/106
[2021-08-20] MEDS ORDERED: ringers solution, lacted 1,000 ML IV ONE (19:15)
[2021-08-20] MEDS: docusate sod 100mg capsule PO SCH (20:56)
[2021-08-20] MEDS: furosemide 40mg/4ml inj IV SCH (21:07)
[2021-08-20] MEDS: metoprolol tartrate 50mg tablet PO SCH (22:17)
[2021-08-21] VITALS (21 sets, daily range): BP systolic 96–202; BP diastolic 60–114
[2021-08-21] MEDS: morphine 2 MG/ML inj. syringe IV PRN ×3 (02:15→12:44)
[2021-08-21 06:17] LABS: ANION GAP 13 (8-16); CHLORIDE 100 MMOL/L (99-107); GLUCOSE 112 MG/DL (70-104); POTASSIUM 3.7 MMOL/L (3.5-5.1); SODIUM 139 MMOL/L (135-145); TOTAL CARBON DIOXIDE 26.1 MMOL/L (24-32)
[2021-08-21 06:18] LABS: ALBUMIN 3.8 G/DL (3.4-5.0); BLOOD UREA NITROGEN 21 MG/DL (7-18); BUN/CREATININE RATIO 18.6 (5.4-32.0); CALCIUM 9.5 MG/DL (8.5-10.1); CREATININE 1.13 MG/DL (0.60-1.10); eGFR 68 ML/MIN
[2021-08-21 06:19] LABS: BASOPHILS # (AUTO) 0.1 X10'3 (0-0.2); BASOPHILS % (AUTO) 0.7 % (0-1); EOSINOPHILS # (AUTO) 0.2 X10'3 (0-0.9); EOSINOPHILS % (AUTO) 2.2 % (0-6); HEMATOCRIT 39.7 % (42.0-52.0); HEMOGLOBIN 13.8 g/dl (14.0-17.9); LYMPHOCYTES # (AUTO) 2.7 X10'3 (1.1-4.8); LYMPHOCYTES % (AUTO) 24.5 % (21-51); MEAN CORPUSCULAR HEMOGLOBIN 30.5 PG (27.0-31.0); MEAN CORPUSCULAR HGB CONC 34.8 g/dL (33.0-36.5); MEAN CORPUSCULAR VOLUME 87.7 FL (78-98); MEAN PLATELET VOLUME 8.1 FL (7.4-10.4); MONOCYTES # (AUTO) 1.3 X10'3 (0-0.9); MONOCYTES % (AUTO) 12.2 % (2-12); NEUTROPHILS # (AUTO) 6.6 X10'3 (1.8-7.7); NEUTROPHILS % (AUTO) 60.4 % (42-75); PLATELET COUNT 388 X10'3 (140-440); RED BLOOD COUNT 4.52 X10'6 (4.70-6.10); RED CELL DISTRIBUTION WIDTH 12.6 % (11.5-14.5); WHITE BLOOD COUNT 10.9 X10'3 (4.5-11.0)
[2021-08-21] MEDS: metoprolol tartrate 50mg tablet PO SCH ×3 (08:00→22:59)
[2021-08-21] MEDS: HYDROchlorothiazide 25mg tablet PO SCH (08:00)
[2021-08-21] MEDS: docusate sod 100mg capsule PO SCH ×2 (08:00→22:57)
[2021-08-21] MEDS: lisinopril 10 MG tablet PO SCH (08:00)
--- NOTE | 2021-08-21 08:28 | NUR ---
Dr. Murguia Pt. [place] [id number] scheduled LL stump revision NPO. Patient B/P 96/66 HR 75. can I have parameters for 100 mg Lopressor. Thanks
[2021-08-21] MEDS ORDERED: bacitracin 15gm ointment TP ONE (17:36)
[2021-08-21] MEDS ORDERED: fentaNYL /PF 50mcg/ml 5ml ampule ONE (17:42)
[2021-08-21] MEDS ORDERED: midazolam 1 mg/ML 2ml injection ONE (17:42)
[2021-08-21] MEDS ORDERED: propofol inj 20 ML IV ONE (17:42)
[2021-08-21] MEDS: furosemide 40mg/4ml inj IV SCH (17:45)
[2021-08-21] MEDS ORDERED: ceFAZolin 1000mg inj ONE ×2 (18:15)
[2021-08-21] MEDS ORDERED: ePHEDrine 50MG/ML INJ. ONE (18:17)
[2021-08-21] MEDS ORDERED: vancomycin 1,000mg inj ONE (18:17)
[2021-08-21] MEDS ORDERED: meperidine/PF 25mg/ml syringe IV PRN ×2 (18:30)
[2021-08-21] MEDS ORDERED: morphine 4 MG/ML inj SYRINge IV PRN (18:30)
[2021-08-21] MEDS ORDERED: proCHLORperazine 10 MG/2 ml inj IV PRN (18:30)
[2021-08-21] MEDS ORDERED: morphine 2 MG/ML inj. syringe IV PRN ×2 (18:30→18:50)
[2021-08-21] MEDS ORDERED: ringers solution, lacted 1,000 ML IV SCH (18:30)
[2021-08-21] MEDS ORDERED: ondansetron/PF 4mg/2ml inj IV PRN (18:30)
[2021-08-21] MEDS ORDERED: meperidine/PF 50mg/ml syringe ONE (19:14)
--- NOTE | 2021-08-21 19:20 | NUR ---
Received from OR via BED, accompanied by Anesthesiologist DR SCHUSTER and report given by Anesthesiologist. PT VERY DROWSY, LMA IN PLACE, NO S/S OF DISTRESS/DISCOMFORT. LEFT AKA W/STUMP AND STUMP SOCK IN PLACE CDI, YANY DRAIN IN PLACE W/SANGUINOUS DRAINAGE IN TUBING. PT AWAKENED SHORTLY AFTER ARRIVAL, LMA D/CD. Addendum: 08/21/21 at 2006 by Gabby Geronimo RN Amended: Links added.
[2021-08-21] MEDS: meperidine/PF 25mg/ml syringe IV PRN ×3 (19:37→20:19)
[2021-08-21] MEDS: morphine 4 MG/ML inj SYRINge IV PRN ×3 (19:56→20:28)
[2021-08-21] MEDS ORDERED: ketorolac trometh. 30mg/ml inj. IV ONE (20:25)
[2021-08-21] MEDS ORDERED: acetaminophen 1,000mg/100ml IV 100 ML IV ONE (20:25)
--- NOTE | 2021-08-21 21:10 | NUR ---
Report called to receiving nurse. PT STATES PAIN IS NOW TOLERABLE, PT APPEARS MUCH MORE COMFORTABLE, NAUSEA RESOLVED. Transferred via BED, NO Belongings. BLL, CALL LIGHT GIVEN, SIDE RAILS UP X 3. SUBSTATION DESIGNER AT BEDSIDE TO RECEIVE PT. Special Issues communicated to receiving nurse. YES. Addendum: 08/21/21 at 2121 by Gabby Geronimo RN Amended: Links added.
[2021-08-21] MEDS ORDERED: HYDROmorphone inj. 0.5 MG/0.5 ML DISP.SYRIN IV PRN (22:05)
--- NOTE | 2021-08-21 22:06 | NUR ---
Pt crying aloud in pain, Whigham was given and ineffective. Hospitalist called and Dilaudid was ordered.
--- NOTE | 2021-08-21 22:50 | NUR ---
spoke to dr valadez regarding pts c/o pain not managed by dilaudid 0.5mg iv. dr valadez notified pt s/p amp revision . new order received
[2021-08-21] MEDS: vancomycin/NS 1 GM ADD-VANTAGE 250 ML IV SCH (22:57)
[2021-08-21] MEDS ORDERED: naloxone 0.4 mg/ml inj IV PRN (23:00)
[2021-08-21] MEDS ORDERED: CADD PCA waste documentation MC PRN (23:00)
--- NOTE | 2021-08-21 23:17 | NUR ---
dr valadez was notified pt still c/o pain not relieved from dilaudid. and bp 202/[address] valadez i just gave scheduled metoprolol po . dilaudid order received .
[2021-08-21] MEDS ORDERED: HYDROmorphone 1 mg/ml syringe IV ONE (23:20)
[2021-08-22] VITALS: BP 101/56
--- NOTE | 2021-08-22 00:16 | NUR ---
notified dr valadez pt is in bed resting and noted to desaturate pt placed on 02 2l nc and while pt sleeping oxygen level flucutuating from 87% -96% on 2l nc . dr valadez stated we can continue the cadd pump.
[2021-08-22] MEDS: ceFAZolin/D5W- 1GM premix 50 ML IV SCH ×2 (00:28→09:44)
[2021-08-22] MEDS: HYDROmorph./NS 0.2 mg/ml CADD 100 ML IV SCH ×13 (00:41→23:00)
[2021-08-22 01:00] VITALS: BP 115/55
[2021-08-22 04:00] VITALS: BP 104/66
[2021-08-22 06:30] LABS: BASOPHILS # (AUTO) 0.1 X10'3 (0-0.2); BASOPHILS % (AUTO) 0.7 % (0-1); EOSINOPHILS # (AUTO) 0.2 X10'3 (0-0.9); HEMATOCRIT 33.8 % (42.0-52.0); HEMOGLOBIN 11.4 g/dl (14.0-17.9); LYMPHOCYTES # (AUTO) 2.8 X10'3 (1.1-4.8); MEAN CORPUSCULAR HEMOGLOBIN 30.1 PG (27.0-31.0); MEAN CORPUSCULAR HGB CONC 33.8 g/dL (33.0-36.5); MEAN PLATELET VOLUME 8.4 FL (7.4-10.4); MONOCYTES # (AUTO) 1.6 X10'3 (0-0.9); MONOCYTES % (AUTO) 13.7 % (2-12); NEUTROPHILS # (AUTO) 6.9 X10'3 (1.8-7.7); NEUTROPHILS % (AUTO) 59.6 % (42-75); PLATELET COUNT 349 X10'3 (140-440); RED CELL DISTRIBUTION WIDTH 12.9 % (11.5-14.5); WHITE BLOOD COUNT 11.5 X10'3 (4.5-11.0)
--- NOTE | 2021-08-22 06:30 | NUR ---
Patient in room [facility] 355. I have received report from YASMINE Ibrahim and had the opportunity to ask questions and assume patient care.
[2021-08-22 06:54] LABS: ALBUMIN 3.1 G/DL (3.4-5.0); ANION GAP 11 (8-16); BLOOD UREA NITROGEN 27 MG/DL (7-18); BUN/CREATININE RATIO 20.9 (5.4-32.0); CALCIUM 8.2 MG/DL (8.5-10.1); CHLORIDE 103 MMOL/L (99-107); CREATININE 1.29 MG/DL (0.60-1.10); GLUCOSE 110 MG/DL (70-104); POTASSIUM 3.8 MMOL/L (3.5-5.1); SODIUM 141 MMOL/L (135-145); TOTAL CARBON DIOXIDE 27.5 MMOL/L (24-32); eGFR 58 ML/MIN
[2021-08-22 07:52] VITALS: BP 125/64
[2021-08-22] MEDS: lisinopril 10 MG tablet PO SCH (09:50)
[2021-08-22] MEDS: docusate sod 100mg capsule PO SCH ×2 (09:51→21:31)
[2021-08-22] MEDS: HYDROchlorothiazide 25mg tablet PO SCH (09:51)
[2021-08-22] MEDS: metoprolol tartrate 50mg tablet PO SCH ×3 (09:52→21:32)
[2021-08-22] MEDS: vancomycin/NS 1 GM ADD-VANTAGE 250 ML IV SCH (10:43)
[2021-08-22] MEDS: normal saline 1000ml 1,000 ML IV SCH (10:55)
[2021-08-22 11:00] VITALS: BP 115/72
--- NOTE | 2021-08-22 18:05 | NUR ---
Problems reprioritized. Patient report given, questions answered & plan of care reviewed with YASMINE Ibrahim.
[2021-08-22 20:00] VITALS: BP 128/77
[2021-08-23] VITALS: BP 117/78
[2021-08-23] MEDS: normal saline 1000ml 1,000 ML IV SCH (00:20)
[2021-08-23] MEDS: HYDROmorph./NS 0.2 mg/ml CADD 100 ML IV SCH ×4 (01:00→07:00)
[2021-08-23 06:04] LABS: BASOPHILS # (AUTO) 0.1 X10'3 (0-0.2); BASOPHILS % (AUTO) 0.9 % (0-1); EOSINOPHILS # (AUTO) 0.4 X10'3 (0-0.9); EOSINOPHILS % (AUTO) 4.4 % (0-6); HEMOGLOBIN 10.9 g/dl (14.0-17.9); LYMPHOCYTES # (AUTO) 2.2 X10'3 (1.1-4.8); LYMPHOCYTES % (AUTO) 24.8 % (21-51); MEAN CORPUSCULAR HEMOGLOBIN 30.6 PG (27.0-31.0); MEAN CORPUSCULAR VOLUME 89.8 FL (78-98); MEAN PLATELET VOLUME 8.5 FL (7.4-10.4); MONOCYTES # (AUTO) 1.3 X10'3 (0-0.9); MONOCYTES % (AUTO) 14.4 % (2-12); NEUTROPHILS # (AUTO) 4.9 X10'3 (1.8-7.7); NEUTROPHILS % (AUTO) 55.5 % (42-75); PLATELET COUNT 333 X10'3 (140-440); RED BLOOD COUNT 3.57 X10'6 (4.70-6.10); RED CELL DISTRIBUTION WIDTH 12.7 % (11.5-14.5); WHITE BLOOD COUNT 8.8 X10'3 (4.5-11.0)
--- NOTE | 2021-08-23 06:25 | NUR ---
Patient in room [facility] 355. I have received report from YASMINE Ibrahim and had the opportunity to ask questions and assume patient care.
[2021-08-23 06:27] LABS: ANION GAP 10 (8-16); BLOOD UREA NITROGEN 23 MG/DL (7-18); BUN/CREATININE RATIO 21.1 (5.4-32.0); CALCIUM 8.3 MG/DL (8.5-10.1); CHLORIDE 101 MMOL/L (99-107); CREATININE 1.09 MG/DL (0.60-1.10); GLUCOSE 99 MG/DL (70-104); POTASSIUM 3.9 MMOL/L (3.5-5.1); SODIUM 139 MMOL/L (135-145); TOTAL CARBON DIOXIDE 28.3 MMOL/L (24-32); eGFR 70 ML/MIN
[2021-08-23 06:30] VITALS: BP 132/81
[2021-08-23] MEDS ORDERED: HYDROcodone/acetaminophen 5mg/325mg tablet PO PRN (08:20)
[2021-08-23] MEDS: metoprolol tartrate 50mg tablet PO SCH ×3 (10:44→20:09)
[2021-08-23] MEDS: lisinopril 10 MG tablet PO SCH (10:45)
[2021-08-23] MEDS: HYDROchlorothiazide 25mg tablet PO SCH (10:46)
[2021-08-23] MEDS: HYDROcodone/acetaminophen 10/325mg tab PO PRN ×4 (10:47→22:03)
[2021-08-23] MEDS: docusate sod 100mg capsule PO SCH ×2 (10:51→20:10)
[2021-08-23 11:00] VITALS: BP 130/76
--- NOTE | 2021-08-23 19:00 | NUR ---
Problems reprioritized. Patient report given, questions answered & plan of care reviewed with YASMINE Ibrahim.
[2021-08-23 20:00] VITALS: BP 109/59
[2021-08-24] VITALS: BP 113/58
[2021-08-24] MEDS: HYDROcodone/acetaminophen 10/325mg tab PO PRN ×3 (02:13→12:47)
[2021-08-24 04:00] VITALS: BP 138/67
[2021-08-24 06:41] LABS: BASOPHILS # (AUTO) 0.1 X10'3 (0-0.2); BASOPHILS % (AUTO) 0.7 % (0-1); EOSINOPHILS # (AUTO) 0.4 X10'3 (0-0.9); EOSINOPHILS % (AUTO) 5.6 % (0-6); LYMPHOCYTES # (AUTO) 2.7 X10'3 (1.1-4.8); MEAN CORPUSCULAR HEMOGLOBIN 30.4 PG (27.0-31.0); MEAN CORPUSCULAR HGB CONC 34.4 g/dL (33.0-36.5); MEAN CORPUSCULAR VOLUME 88.5 FL (78-98); MEAN PLATELET VOLUME 8.5 FL (7.4-10.4); MONOCYTES # (AUTO) 0.9 X10'3 (0-0.9); MONOCYTES % (AUTO) 11.3 % (2-12); NEUTROPHILS # (AUTO) 3.5 X10'3 (1.8-7.7); NEUTROPHILS % (AUTO) 46.4 % (42-75); PLATELET COUNT 359 X10'3 (140-440); RED BLOOD COUNT 3.61 X10'6 (4.70-6.10); RED CELL DISTRIBUTION WIDTH 12.5 % (11.5-14.5); WHITE BLOOD COUNT 7.6 X10'3 (4.5-11.0)
[2021-08-24 07:00] VITALS: BP 136/83
[2021-08-24 07:38] LABS: ALBUMIN 3.2 G/DL (3.4-5.0); ANION GAP 10 (8-16); BLOOD UREA NITROGEN 20 MG/DL (7-18); BUN/CREATININE RATIO 18.3 (5.4-32.0); CALCIUM 8.6 MG/DL (8.5-10.1); CHLORIDE 100 MMOL/L (99-107); CREATININE 1.09 MG/DL (0.60-1.10); GLUCOSE 94 MG/DL (70-104); POTASSIUM 3.8 MMOL/L (3.5-5.1); SODIUM 138 MMOL/L (135-145); TOTAL CARBON DIOXIDE 28.2 MMOL/L (24-32); eGFR 70 ML/MIN
[2021-08-24] MEDS: docusate sod 100mg capsule PO SCH (08:53)
[2021-08-24] MEDS: lisinopril 10 MG tablet PO SCH (08:53)
[2021-08-24] MEDS: HYDROchlorothiazide 25mg tablet PO SCH (08:53)
[2021-08-24] MEDS: metoprolol tartrate 50mg tablet PO SCH ×2 (08:53→12:47)
[2021-08-24 10:00] VITALS: BP 132/91
--- NOTE | 2021-08-24 10:17 | NUR ---
Patient in room MED 314. I have received report from YASMINE DELEON, and had the opportunity to ask questions and assume patient care.
[2021-08-24 11:00] VITALS: BP 111/67
--- NOTE | 2021-08-24 11:48 | NUR ---
PAGE SENT PAGER ID: [phone] MESSAGE: [phone], BELKYS BURRELL, IS PT GOING HOME WITH HEMOVAC? THANK YOU, DRAGAN Mo [phone]
[2021-08-24 12:47] VITALS: BP_SYST 111
--- NOTE | 2021-08-24 13:10 | NUR ---
Wound care in for application of "bulky dressing" to left AKA prior to discharge per request of hospitalist. The pt is sitting up in bed in no apparent acute distress. Greeted and explained the intent. The left AKA presents JORGE with incision approximated with vasquez. It measures approximately 24 CM from the inner thigh to the lateral aspect of the left thigh, primarily dry with small sanguineous seepage laterally. There is a Hemovac drain superior the incision on the upper lateral aspect of the left thigh with tubing sutured to the skin at the entry site. The incision was cleansed with wound wash, rinsed with saline and patted dry. Xeroform was placed to the lateral aspect. The incisional line was topped with dry gauze, secured with a gauze roll and large size workforce development vice president sock was placed. During wrapping, it was observed that there was sanguineous fluid leaking around the entry site of the Hemovac. The primary nurse was called to the bedside. She determined that the tubing suture was secured to the skin. The device was opened and depressed and it appeared to regain suction. The patient stated that when he was using the commode the day before yesterday, the tubing had been "stretched". The patient was given instruction by the primary RN concerning the Hemovac and it's care. The bed was left in the lowest position, call light/personal items in reach. Addendum: 08/24/21 at 1332 by Selene Moreau RN Amended: Links added.
--- NOTE | 2021-08-24 13:25 | NUR ---
PT STABLE FOR DISCHARGE PER MD. WOUND TEAM APPLIED BULKY DRESSING AND STUMP SOCK PLACED PER MD ORDER. PT HAS APPOINTMENT WITH ON TUESDAY, 27 AUGUST AT 10 AM. DISCHARGE PAPERWORK AND INSTRUCTIONS REVIEWED WITH PT AND HIS MOTHER, APPROPRIATE PAPERWORK SIGNED. PT WHEELED TO PRIVATE VEHICLE BY HOSPITAL STAFF. PT DISCHARGED TO HOME.
== END 2021-08-24 13:21 | disposition home or self-care (01) | DRG 498 ==
LOC: ER 10:11 → ED HOLD 14:37 → SUR 3N 17:48 → MED 3N 08-24 09:40
PROVIDERS: ADMIT Internal Medicine; ATTEND Internal Medicine
PROC: 0Y9D0ZZ Drainage of Left Upper Leg, Open Approach (ICD-10-PCS; 2021-08-21)
PROC: 0QBC0ZZ Excision of Left Lower Femur, Open Approach (ICD-10-PCS; principal; 2021-08-21 17:37)
DX: T87.89 Other complications of amputation stump (principal); Z68.41 Body mass index [BMI] 40.0-44.9, adult; L76.22 Postprocedural hemorrhage of skin and subcutaneous tissue following other procedure; N17.9 Acute kidney failure, unspecified; E66.01 Morbid (severe) obesity due to excess calories; F12.90 Cannabis use, unspecified, uncomplicated; Z20.822 Contact with and (suspected) exposure to COVID-19; I10 Essential (primary) hypertension; Z96.612 Presence of left artificial shoulder joint; Z82.49 Family history of ischemic heart disease and other diseases of the circulatory system; Z87.891 Personal history of nicotine dependence; Z89.512 Acquired absence of left leg below knee; Z89.612 Acquired absence of left leg above knee; Z79.899 Other long term (current) drug therapy
CPT/HCPCS: 96372; 99285; Z7506; Z7508; 36415; 71045; 80048; 80053; 83880; 85025; 85610; 85651; 87081; 87635; 93005; 97116; 97161; 97530; A4618; A6223; A6253; A6449; A7000; G0378; J0131; J0690; J1170; J1885; J1940; J2175; J2250; J2270; J2405; J2704; J3010; J3370; J3490; J7030; J7120

== ENCOUNTER 2022-09-20 14:53 | Inpatient (IN) | payer MEDICAID, OTHER ==
[~2022-09-20] VITALS: Ht 177.8 cm; Wt 136.0 kg
[~2022-09-20 14:53] MED LIST changes: -HYDR25TA4 PO; +HYDR25TA5 PO
[2022-09-20] MEDS ORDERED: ondansetron 4mg rapidly disintigrating tab PO ONE (15:25)
--- NOTE | 2022-09-20 15:27 | NUR ---
SPOKE TO PA RE: PTS S\S - VERBAL ORDERS GIVEN
[2022-09-20 15:55] LABS: BASOPHILS # (AUTO) 0.1 X10'3 (0-0.2); BASOPHILS % (AUTO) 0.9 % (0-1); EOSINOPHILS # (AUTO) 0.3 X10'3 (0-0.9); EOSINOPHILS % (AUTO) 2.7 % (0-6); HEMATOCRIT 50.7 % (42.0-52.0); HEMOGLOBIN 17.2 g/dl (14.0-17.9); LYMPHOCYTES # (AUTO) 2.3 X10'3 (1.1-4.8); LYMPHOCYTES % (AUTO) 21.8 % (21-51); MEAN CORPUSCULAR HEMOGLOBIN 30.4 PG (27.0-31.0); MEAN CORPUSCULAR VOLUME 89.4 FL (78-98); MEAN PLATELET VOLUME 8.9 FL (7.4-10.4); MONOCYTES # (AUTO) 0.9 X10'3 (0-0.9); NEUTROPHILS # (AUTO) 7.1 X10'3 (1.8-7.7); NEUTROPHILS % (AUTO) 66.6 % (42-75); PLATELET COUNT 267 X10'3 (140-440); RED BLOOD COUNT 5.66 X10'6 (4.70-6.10); RED CELL DISTRIBUTION WIDTH 13.4 % (11.5-14.5); WHITE BLOOD COUNT 10.7 X10'3 (4.5-11.0)
[2022-09-20] MEDS ORDERED: normal saline 1000ML IV soln IVB ONE (15:55)
[2022-09-20] MEDS ORDERED: proCHLORperazine 10 MG/2 ml inj IV ONE (15:55)
[2022-09-20] MEDS ORDERED: diphenhydrAMINE 50 mg/ml inj IV ONE (15:55)
[2022-09-20 16:14] LABS: ALANINE AMINOTRANSFERASE 35 U/L (12-78); ALBUMIN 4.2 G/DL (3.4-5.0); ALBUMIN/GLOBULIN RATIO 1.1 (1.1-1.5); ALKALINE PHOSPHATASE 56 IU/L (46-116); ANION GAP 15 (8-16); ASPARTATE AMINO TRANSFERASE 28 U/L (10-37); BILIRUBIN,TOTAL 0.7 MG/DL (0.1-1.0); BLOOD UREA NITROGEN 18 MG/DL (7-18); BUN/CREATININE RATIO 11.4 (10.0-20.0); CALCIUM 9.5 MG/DL (8.5-10.1); CHLORIDE 100 MMOL/L (99-107); CREATININE 1.58 MG/DL (0.60-1.10); GLUCOSE 127 MG/DL (70-104); LIPASE 99 U/L (73-393); POTASSIUM 3.8 MMOL/L (3.5-5.1); SODIUM 137 MMOL/L (135-145); TOTAL CARBON DIOXIDE 21.9 MMOL/L (24-32); TOTAL PROTEIN 8.2 G/DL (6.4-8.2); eGFR 46 ML/MIN
--- NOTE | 2022-09-20 17:18 | NUR ---
back from ct. pt using restroom.
[2022-09-20 17:47] LABS: COLOR,URINE YELLOW (Yellow); GLUCOSE, URINE NEGATIVE (Neg); LEUKOCYTE ESTERASE ,URINE NEGATIVE (Neg); NITRITES, URINE NEGATIVE (Neg); OCCULT BLOOD,URINE LARGE (Neg); PROTEIN,URINE 30 mg/dl (Neg); UROBILINOGEN,URINE 0.2 E.U/dL (0.2-1.0)
[2022-09-20 17:53] LABS: KETONES,URINE TRACE mg/dl (Neg)
[2022-09-20 17:56] LABS: CLARITY,URINE SLIGHTLY CLOUDY (Clear); UA COLLECTION TYPE CLN CATCH MIDSTREAM
[2022-09-20 18:00] LABS: BACTERIA,URINE 2+ /HPF (Neg); MUCUS STRANDS MODERATE /LPF (Neg); SQUAMOUS EPITHELIAL CELL,UR FEW /LPF (FEW)
[2022-09-20 18:01] LABS: AMORPHOUS URATES 1+
[2022-09-20] MEDS ORDERED: cephalexin 500mg capsule PO ONE (18:05)
[2022-09-20] MEDS ORDERED: FLO0.4C PO (18:08)
[2022-09-20] MEDS ORDERED: HYDR-3965 PO (18:08)
[2022-09-20] MEDS ORDERED: CEPH500C2 PO (18:08)
[2022-09-20] MEDS ORDERED: ONDA8TAB13 PO (18:11)
[2022-09-20] MEDS ORDERED: tamsulosin 0.4mg capsule PO ONE (18:12)
[2022-09-20] MEDS ORDERED: morphine 4 MG/ML inj SYRINge IV PRN (18:30)
[2022-09-20] MEDS ORDERED: acetaminophen 650mg rectal suppository RC PRN (20:20)
[2022-09-20] MEDS ORDERED: metoclopramide 5 mg/ml inj IV PRN (20:20)
[2022-09-20] MEDS ORDERED: diphenhydrAMINE 50 mg/ml inj IV PRN (20:20)
[2022-09-20] MEDS ORDERED: magnesium hydroxide 30ml (MOM) UD suspension PO PRN (20:20)
[2022-09-20] MEDS ORDERED: ondansetron/PF 4mg/2ml inj IV PRN (20:20)
[2022-09-20] MEDS ORDERED: acetaminophen 325mg tablet PO PRN ×2 (20:20)
[2022-09-20] MEDS ORDERED: HYDROcodone/acetaminophen 10/325mg tab PO PRN (20:20)
[2022-09-20] MEDS ORDERED: morphine 2 MG/ML inj. syringe IV PRN ×2 (20:20)
[2022-09-20] MEDS ORDERED: bisacodyl 10mg suppository rectal RC PRN (20:20)
[2022-09-20] MEDS ORDERED: HYDROcodone/acetaminophen 5mg/325mg tablet PO PRN (20:20)
[2022-09-20] MEDS ORDERED: ondansetron 4mg rapidly disintigrating tab PO PRN (20:20)
[2022-09-20] MEDS ORDERED: diphenhydrAMINE 25mg capsule PO PRN (20:20)
[2022-09-20] MEDS ORDERED: mag hydrox/Alum hydrox/simeth 30ml oral suspension PO PRN (20:20)
[2022-09-20] MEDS: sodium chloride 0.45% 1,000 ML IV SCH (20:20)
[2022-09-20] MEDS ORDERED: niCARDipine-NS 40mg/200ml IVPB 200 ML IV SCH (20:30)
[2022-09-20 20:43] LABS: HEMOGLOBIN A1C 5.7 % (4.5-6.2)
[2022-09-20 20:56] LABS: MAGNESIUM 1.9 MG/DL (1.5-2.4); PHOSPHORUS 3.4 MG/DL (2.3-4.5)
[2022-09-20] MEDS ORDERED: temazepam 15mg capsule PO PRN (21:00)
[2022-09-20] MEDS ORDERED: LISI20TA28 PO (21:07)
[2022-09-20 21:16] LABS: APTT 25 SECONDS (22-32)
[2022-09-20] MEDS: furosemide 10 MG/1 ML 10ml inj IV SCH (21:20)
[2022-09-20 21:40] LABS: URINE AMPHETAMINE SCREEN NEGATIVE (Neg); URINE BARBITUATE SCREEN NEGATIVE (Neg); URINE BENZODIAZEPINES SCREEN NEGATIVE (Neg); URINE CANNABINOID SCREEN POSITIVE (Neg); URINE COCAINE SCREEN NEGATIVE (Neg); URINE METHADONE SCREEN NEGATIVE (Neg); URINE OPIATE SCREEN NEGATIVE (Neg); URINE PHENCYCLIDINE SCREEN NEGATIVE (Neg)
--- NOTE | 2022-09-20 23:14 | NUR ---
pt blood pressure 112/79. Nicardipine drip stopped.
[2022-09-21] VITALS (7 sets, daily range): BP systolic 98–153; BP diastolic 56–104
[2022-09-21] MEDS: niCARDipine-NS 40mg/200ml IVPB 200 ML IV SCH ×3 (00:04→16:04)
[2022-09-21 07:10] LABS: BASOPHILS # (AUTO) 0.1 X10'3 (0-0.2); BASOPHILS % (AUTO) 0.6 % (0-1); EOSINOPHILS # (AUTO) 0.2 X10'3 (0-0.9); EOSINOPHILS % (AUTO) 1.7 % (0-6); HEMATOCRIT 44.5 % (42.0-52.0); HEMOGLOBIN 15.3 g/dl (14.0-17.9); LYMPHOCYTES # (AUTO) 3.2 X10'3 (1.1-4.8); LYMPHOCYTES % (AUTO) 30.2 % (21-51); MEAN CORPUSCULAR HEMOGLOBIN 30.4 PG (27.0-31.0); MEAN CORPUSCULAR HGB CONC 34.3 g/dL (33.0-36.5); MEAN CORPUSCULAR VOLUME 88.8 FL (78-98); MEAN PLATELET VOLUME 8.8 FL (7.4-10.4); MONOCYTES # (AUTO) 1.3 X10'3 (0-0.9); MONOCYTES % (AUTO) 12.2 % (2-12); NEUTROPHILS # (AUTO) 5.9 X10'3 (1.8-7.7); NEUTROPHILS % (AUTO) 55.3 % (42-75); PLATELET COUNT 245 X10'3 (140-440); RED BLOOD COUNT 5.02 X10'6 (4.70-6.10); RED CELL DISTRIBUTION WIDTH 13.2 % (11.5-14.5); WHITE BLOOD COUNT 10.7 X10'3 (4.5-11.0)
[2022-09-21] MEDS: lisinopril 20mg tablet PO SCH (07:46)
[2022-09-21] MEDS: metoprolol tartrate 50mg tablet PO SCH ×3 (07:47→18:03)
[2022-09-21] MEDS: docusate sod 100mg capsule PO SCH ×2 (07:48→20:00)
[2022-09-21 07:49] LABS: ALANINE AMINOTRANSFERASE 27 U/L (12-78); ALBUMIN 3.6 G/DL (3.4-5.0); ALBUMIN/GLOBULIN RATIO 1.1 (1.1-1.5); ALKALINE PHOSPHATASE 48 IU/L (46-116); ANION GAP 10 (8-16); ASPARTATE AMINO TRANSFERASE 26 U/L (10-37); BLOOD UREA NITROGEN 17 MG/DL (7-18); BUN/CREATININE RATIO 11.4 (10.0-20.0); CALCIUM 8.9 MG/DL (8.5-10.1); CHLORIDE 102 MMOL/L (99-107); CHOL/HDL RATIO 4.2 (0.00-4.99); CHOLESTEROL 192 MG/DL (0-200); CREATININE 1.49 MG/DL (0.60-1.10); GLUCOSE 118 MG/DL (70-104); HDL CHOLESTEROL 46 MG/DL (35-60); LDL CHOLESTEROL 127 MG/DL (50-100); POTASSIUM 3.2 MMOL/L (3.5-5.1); SODIUM 140 MMOL/L (135-145); TOTAL CARBON DIOXIDE 27.6 MMOL/L (24-32); TRIGLYCERIDES 129 MG/DL (20-135); eGFR 49 ML/MIN
[2022-09-21] MEDS: pantoprazole 40mg Tablet.DR PO SCH (07:49)
[2022-09-21] MEDS: furosemide 10 MG/1 ML 10ml inj IV SCH (07:59)
[2022-09-21] MEDS: CefTRIAXone/D5W-Rocephin 1gm 50 ML IV SCH ×2 (08:00→20:12)
[2022-09-21] MEDS ORDERED: cephalexin 500mg capsule PO SCH (08:00)
[2022-09-21] MEDS: sodium chloride 0.45% 1,000 ML IV SCH ×4 (08:04→18:04)
[2022-09-21] MEDS ORDERED: potassium Cl 40MEQ/1/2NS 520ml 520 ML IV PRN (10:25)
[2022-09-21] MEDS ORDERED: potassium Cl 20 mEq SR tablet PO PRN (10:25)
[2022-09-21] MEDS ORDERED: magnesium 4gm in 100ml NS 100 ML IV PRN (10:25)
[2022-09-21] MEDS ORDERED: magnesium Cl slow-release 64mg tablet PO PRN (10:25)
--- NOTE | 2022-09-21 13:45 | NUR ---
SPOKE WITH DR. CONNORS ON THE PHONE REGARDING THE PATIENT'S L URETAL STONE AND ASKED IF ANY INTERVENTION NEEDED TO BE DONE AND HE STATED THAT THE PATIENT WILL FOLLOW UP OUTPATIENT.
--- NOTE | 2022-09-21 13:46 | NUR ---
PAGED DR. LAGUNA REGARDING SPEAKING WITH DR. CONNORS AND CRITICAL RESULT OF TROPONIN. PAGER ID: [phone] MESSAGE: [phone]. BELKYS BURRELL. SPOKE WITH DR. CONNORS. WILL F/U OP FOR URETAL STONE. CRITICAL RESULT OF TROP 161.
--- NOTE | 2022-09-21 13:53 | NUR ---
Nutrition Consult: Pt admit DX UTI, L ureteral stone, and hypertensive emergency per EMR. Pt w/ normal strength, no edema/wounds, PO 100% first Na-restricted diet meal this AM, and pending scaled wt this admit though reported wt close to last standing scaled wt 127kg 08/18' in EMR. No nutrition interventions at this time. Addendum: 09/21/22 at [address] Amended: Links added.
--- NOTE | 2022-09-21 14:15 | NUR ---
Paged Dr Ferrer PAGER ID: [phone] MESSAGE: [phone]. [place]. Dr Torre said to f/u out pt. Trop 161, no c/o pain, VS stable. Want tele back on? Salvador [phone]
[2022-09-21] MEDS ORDERED: metoprolol tartrate 1mg/ml inj IV PRN (14:20)
[2022-09-21] MEDS ORDERED: regadenoson 0.4mg/5ml syringe IV PRN (14:20)
[2022-09-21] MEDS ORDERED: aminophylline 250mg/10ml inj. IV PRN (14:20)
[2022-09-21] MEDS ORDERED: nitroGLYCERIN 0.4mg SUBLingual tab SL PRN (14:20)
[2022-09-21] MEDS: potassium Cl 20 mEq SR tablet PO PRN ×2 (14:51→20:05)
--- NOTE | 2022-09-21 18:30 | NUR ---
Problems reprioritized. Patient report given, questions answered & plan of care reviewed with YASMINE Urban.
--- NOTE | 2022-09-21 19:28 | NUR ---
notified of pts troponin level of 146. Aspirin 81mg order put in by .
[2022-09-21] MEDS ORDERED: K and/or MAG REPLACEMENT MC SCH (20:00)
[2022-09-21] MEDS: aspirin 81mg, enteric-coated 1 TAB TABLET.DR PO SCH (20:05)
[2022-09-21] MEDS ORDERED: tamsulosin 0.4mg capsule PO SCH (21:00)
[2022-09-22] VITALS (9 sets, daily range): BP systolic 127–155; BP diastolic 86–106
[2022-09-22] MEDS: sodium chloride 0.45% 1,000 ML IV SCH (01:29)
--- NOTE | 2022-09-22 06:53 | NUR ---
Problems reprioritized. Patient report given, questions answered & plan of care reviewed with Raeann UNDERWOOD.
[2022-09-22 07:11] LABS: BASOPHILS # (AUTO) 0.1 X10'3 (0-0.2); EOSINOPHILS # (AUTO) 0.4 X10'3 (0-0.9); EOSINOPHILS % (AUTO) 4.4 % (0-6); HEMATOCRIT 45.4 % (42.0-52.0); HEMOGLOBIN 15.2 g/dl (14.0-17.9); LYMPHOCYTES # (AUTO) 3.8 X10'3 (1.1-4.8); LYMPHOCYTES % (AUTO) 45.6 % (21-51); MEAN CORPUSCULAR HEMOGLOBIN 30.4 PG (27.0-31.0); MEAN CORPUSCULAR HGB CONC 33.5 g/dL (33.0-36.5); MEAN CORPUSCULAR VOLUME 90.7 FL (78-98); MEAN PLATELET VOLUME 8.8 FL (7.4-10.4); MONOCYTES # (AUTO) 0.8 X10'3 (0-0.9); MONOCYTES % (AUTO) 9.6 % (2-12); NEUTROPHILS # (AUTO) 3.3 X10'3 (1.8-7.7); NEUTROPHILS % (AUTO) 39.4 % (42-75); PLATELET COUNT 208 X10'3 (140-440); RED CELL DISTRIBUTION WIDTH 13.1 % (11.5-14.5); WHITE BLOOD COUNT 8.4 X10'3 (4.5-11.0)
[2022-09-22 07:26] LABS: ALANINE AMINOTRANSFERASE 24 U/L (12-78); ALBUMIN 3.3 G/DL (3.4-5.0); ALBUMIN/GLOBULIN RATIO 0.9 (1.1-1.5); ALKALINE PHOSPHATASE 44 IU/L (46-116); ANION GAP 8 (8-16); ASPARTATE AMINO TRANSFERASE 26 U/L (10-37); BILIRUBIN,TOTAL 0.7 MG/DL (0.1-1.0); BLOOD UREA NITROGEN 19 MG/DL (7-18); BUN/CREATININE RATIO 16.2 (10.0-20.0); CALCIUM 9.1 MG/DL (8.5-10.1); CHLORIDE 103 MMOL/L (99-107); CREATININE 1.17 MG/DL (0.60-1.10); GLUCOSE 100 MG/DL (70-104); MAGNESIUM 1.9 MG/DL (1.5-2.4); POTASSIUM 3.6 MMOL/L (3.5-5.1); SODIUM 137 MMOL/L (135-145); TOTAL CARBON DIOXIDE 26.2 MMOL/L (24-32); TOTAL PROTEIN 6.8 G/DL (6.4-8.2); eGFR 65 ML/MIN
[2022-09-22] MEDS: docusate sod 100mg capsule PO SCH (08:00)
[2022-09-22] MEDS: pantoprazole 40mg Tablet.DR PO SCH (08:25)
[2022-09-22] MEDS: lisinopril 20mg tablet PO SCH (08:25)
[2022-09-22] MEDS: metoprolol tartrate 50mg tablet PO SCH (08:25)
[2022-09-22] MEDS: furosemide 10 MG/1 ML 10ml inj IV SCH (08:26)
[2022-09-22] MEDS: aspirin 81mg, enteric-coated 1 TAB TABLET.DR PO SCH (08:26)
[2022-09-22] MEDS: CefTRIAXone/D5W-Rocephin 1gm 50 ML IV SCH (08:50)
--- NOTE | 2022-09-22 14:19 | NUR ---
Pt stable for discharge per Dr. Ferrer. All discharge instructions reviewed with patient and all questions answered, pt verbalized understanding. No new medications ordered. PIV discontinued, cannula intact. Tele discontinued. All belongings collected and sent with patient. Wheeled to lobby via nursing staff and picked up by family.
[2022-09-23 12:08] LABS: HBSAG SCREEN Negative (Negative); HEP B CORE AB, TOT Negative (Negative)
== END 2022-09-22 13:45 | disposition home or self-care (01) | DRG 465 ==
LOC: ER 14:53 → ED HOLD 20:26 → EDBEDREQ 22:47 → EDBEDREQSVC 22:47 → PCU 3S 23:30
PROVIDERS: ADMIT Family Medicine; ATTEND Family Medicine
PROC: 4A02XM4 Measurement of Cardiac Total Activity, External Approach (ICD-10-PCS; principal; 2022-09-22)
PROC: 3E033HZ Introduction of Radioactive Substance into Peripheral Vein, Percutaneous Approach (ICD-10-PCS; 2022-09-22)
DX: N20.2 Calculus of kidney with calculus of ureter (principal); I50.23 Acute on chronic systolic (congestive) heart failure; I21.A1 Myocardial infarction type 2; N13.6 Pyonephrosis; E87.20 Acidosis, unspecified; K80.10 Calculus of gallbladder with chronic cholecystitis without obstruction; K76.0 Fatty (change of) liver, not elsewhere classified; I11.0 Hypertensive heart disease with heart failure; E78.5 Hyperlipidemia, unspecified; E66.01 Morbid (severe) obesity due to excess calories; G89.4 Chronic pain syndrome; I16.1 Hypertensive emergency; F12.90 Cannabis use, unspecified, uncomplicated; N40.0 Benign prostatic hyperplasia without lower urinary tract symptoms; Z68.41 Body mass index [BMI] 40.0-44.9, adult; Z79.891 Long term (current) use of opiate analgesic; Z82.49 Family history of ischemic heart disease and other diseases of the circulatory system; Z87.891 Personal history of nicotine dependence; Z89.612 Acquired absence of left leg above knee; Z79.899 Other long term (current) drug therapy
CPT/HCPCS: 36415; 74176; 76770; 76870; 78452; 80053; 80061; 80305; 81001; 83036; 83605; 83690; 83735; 83880; 84100; 84132; 84443; 84484; 85025; 85610; 85730; 86704; 86705; 86706; 87040; 87081; 87088; 87340; 93005; 93017; 93976; 96361; 96374; 96375; 99285; A9500; G0378; J0280; J0696; J0780; J1200; J1940; J2785; J3490; J7030; J7040

== ENCOUNTER 2024-11-17 13:19 | Emergency (ER) | payer MEDICAID ==
[~2024-11-17] VITALS: Ht 177.8 cm; Wt 136.4 kg
[~2024-11-17 13:19] MED LIST changes: -LISI10TA27 PO; +LISI20TA28 PO
[2024-11-17 13:32] VITALS: BP 147/100; PULSE 95; TEMP 97.7; O2SAT 94
--- NOTE | 2024-11-17 14:38 | Physician Documentation ---
History of Present Illness ~ Chief Complaint: Ankle pain Stated Complaint: PAIN IN FOOT Time Seen by MD: 14:21 Primary Medical Doctor: Sin [facility] This is a 59-year-old male with a history of left-sided cvjfi-liy-uram amputation who presents with right ankle and foot pain after he was hopping on his foot while not wearing his prosthesis yesterday, patient reports that through yesterday and today the pain has worsened, patient reports he took Tylenol home without significant relief of pain. Reports no other acute symptoms or concerns. Patient reports no loss of feeling in the foot. Tetanus witin 5 years: Yes Medication Reconciliation Allergies: Coded Allergies: No Known Allergies (Unverified , 02/10/20) Scheduled Hydrochlorothiazide (Hydrochlorothiazide), 2 TAB PO QAM, (Reported) Ibuprofen (Ibuprofen), 1 TAB PO Q8H Lisinopril (Lisinopril), 1 TAB PO DAILY, (Reported) Metoprolol Tartrate (Metoprolol Tartrate), 1 TABLET PO TIDWM, (Reported) Past Medical History Past Medical History: Hypertension, Extremity Fracture Past Surgical History: orthopedic surgeries Other Past Surgical History: BKA Patient History: FH myocardial infarction male first degree age known FATHER, Onset:50's - 60 MOTHER FH: gallbladder disease FATHER, Onset:40's - 50 MOTHER, Onset:40's - 50 Sister, Onset:40's - 50 FH: hypertension FATHER, Onset:30's - 40 MOTHER, Onset:30's - 40 Sister Alcohol Use: Occasionally Drug Use: marijuana Lives with: Spouse Lives In: Home Review of Systems ROS Right foot pain as stated above in the HPI, otherwise all systems are reviewed and negative. Physical Exam Vital Signs: Temperature: 97.7, Source: Temporal, Heart Rate: 95, Respiratory Rate: 15, BP: 147/100, Pulse Oximetry: 94, Weight: 136.360 Physical Exam VITALS: Reviewed and as above. GENERAL: Alert, nontoxic appearing, no apparent distress. RESPIRATORY: No increased work of breathing, no respiratory distress, speaking in full clear sentences MUSCULOSKELETAL: Swelling and tenderness to the right foot greatest in the proximal dorsal aspect and bilateral aspects of the ankle Progress Results/Orders Results/Orders Orders - RAMY BENTON Ortho Orders (11/17/24 ) Completed Orders - RAMY BENTON Ketorolac Trometh 15mg/Ml Vial (Toradol (11/17/24 14:40) Vital Signs 11/17/24 11/17/24 13:32 14:50 Temp 97.7 Pulse 95 Resp 15 17 B/P (MAP) 147/100 Pulse Ox 94 EKG/XRAY/CT/US/VASC/MRI Bone/Soft Tissue X-Ray (Ext.) : Additional Comment DI ANKLE, COMPLETE(3VW MIN), INDICATION: ANKLE PAIN TECHNICAL DATA:Frontal , oblique and lateral views were obtained of the right ankle. COMPARISON: None FINDINGS: No fracture is identified. Joint spaces are maintained. Alignment is anatomic. Soft tissues are within normal limit. IMPRESSION: No acute fracture or dislocation of the right ankle. Electronically Signed by:JOSE ALFREDO FONSECA MD Date & Time: 11/17/24 1435 Dictated by: JOSE ALFREDO FONSECA MD Dictation date and time: 11/17/24 1417 I have reviewed and agree with the radiology report. I have reviewed and interpreted the imaging as: No fracture or dislocation Medical Decision Making Findings This 59-year-old male history of left nqvuy-njc-trwh amputation scented with right foot pain after hoping for ambulation while not wearing his left prosthesis, the right foot was tender to palpation dorsal aspect and at the lateral aspect of the ankle, there was no evidence of neurovascular compromise inpatient reported adequate pain relief in the department. X-ray of foot did not demonstrate evidence of fracture or dislocation. Patient was placed in a walking boot for stability of the ankle and provided crutches which he was able to ambulate with minimal pain utilizing crutches and walking boot. Remainder of physical exam was benign and patient is appropriate for outpatient follow up. Patient provided follow up instructions along with home care instructions for rest ice compression and elevation. Return to care precautions provided and patient verbalized understanding. Ankle Diff Dx:Considerations: Include: Abrasion, Arthritis, Contusion, DJD, Fracture-metatarsal, Fracture-fibula, Fracture-tarsal, Hematoma, Laceration, Neurovascular injury Foot Diff Dx:Considerations: Include: Dislocation, Fracture-metatarsal, Fracture-phalynx, Sprain, Septic Departure Disposition: 01 HOME / SELF CARE / HOMELESS Impression: Primary Impression: Right ankle pain Qualified Codes: M25.571 - Pain in right ankle and joints of right foot Condition: Improved Discharge Instructions: Ankle Pain, RICE Therapy for Routine Care of Injuries, [id number] Additional Instructions: Please take the prescribed ibuprofen as needed for pain starting tomorrow as you received a shot of Toradol in the department today which replaces ibuprofen for approximately 12 hours, you may use Tylenol as needed as directed by the ulno-nuq-embflil packaging for breakthrough pain. Please follow up with your primary care provider and the orthopedist at the number provided in the next few days for a recheck. Please return to the emergency department for any new or worsening concerning symptoms. Referrals: NO PRIMARY CARE PROVIDER (PCP) JUAN YOUSSEF MD Prescriptions Ibuprofen (Ibuprofen) 800 Mg Tablet 1 TAB PO Q8H for pain for 10 Days, #30 TAB 0 Refills Prov: RAMY BENTON 11/17/24 Education Educated: Patient Educated regarding: diagnosis, treatment, prognosis, need for follow up Signature Scribe Signature: No scribe Attestation: The note accurately reflects work and decisions made by me.CRISTOBAL Erazo 11/18/24 01:37 RAMY BENTON November 17, 2024 14:38
[2024-11-17 14:50] VITALS: RESP 17
[2024-11-17] MEDS: ketorolac trometh 15mg/ml vial 15 MG/ML ML IM ONE (14:50)
[2024-11-17] MEDS ORDERED: IBUP-1986 PO (15:08)
== END 2024-11-17 15:25 | disposition home or self-care (01) ==
LOC: ER 13:19
DX: M25.571 Pain in right ankle and joints of right foot (principal); I10 Essential (primary) hypertension; F12.90 Cannabis use, unspecified, uncomplicated; Z79.899 Other long term (current) drug therapy; Z72.89 Other problems related to lifestyle
CPT/HCPCS: 73610; 96372; 99284; J1885; L4360